=== PATIENT | male | born 1965 | race African-American/Black ===

== ENCOUNTER 2016-09-02 10:06 | Inpatient (IN) | payer OTHER ==
[2016-09-02 10:20] VITALS: BMI 26.5
--- NOTE | 2016-09-02 12:31 | HP ---
Admission [facility] Chief Complaint: "I am Really trying to get my life back on track." Pt. is here for Rehab for Alcohol, Heroin, and Cocaine. Allergies/Adverse Reactions: Allergies Allergy/AdvReac Type Severity Reaction Status Date / Time No Known Allergies Allergy Verified 09/02/16 10:48 History of Present Illness: Pt. is a 51 YO male here for Rehab for Alcohol, Heroin, and Cocaine. Pt. completed Detox at [facility] this past 08/29/2016. Patient had previous Rehab at [place], [place]), completed in 2015. This was followed by Long Terms Rehab at [facility], completed in 03/2016. Longest period of previous sobriety: 2007 - 2013. Exam Limitations: No Limitations - Ebola screening Have you traveled outside of the country in the last 21 days: No Have you had contact with anyone from an Ebola affected area: No Have you been sick,other than usual withdrawal symptoms: No Do you have a fever: No - Review of Systems Constitutional: Loss of Appetite (Intermittent.), Malaise, Unintentional Wgt. Loss (Lost approx. 20 lbs. over last 6 months.) EENT: reports: Other (Partial Dentures for Upper and Lower Teeth.) Respiratory: reports: No Symptoms reported Cardiac: reports: No Symptoms Reported GI: reports: Poor Appetite (Intermittent when using Drugs / Alcohol.), Indigestion : reports: No Symptoms Reported Musculoskeletal: reports: No Symptoms Reported Integumentary: reports: No Symptoms Reported Neuro: reports: No Symptoms reported Endocrine: reports: No Symptoms Reported Hematology: reports: Anemia (Many years ago.) Psychiatric: reports: Judgement Intact, Mood/Affect Appropiate, Orientated x3, Depressed (Only when using Drugs / Alcohol.) Other Systems: Reviewed and Negative Patient History - Patient Medical History Hx Anemia: Yes (Many years ago, Not recent.) Hx Asthma: No Hx Chronic Obstructive Pulmonary Disease (COPD): No Hx Cancer: No Hx Cardiac Disorders: No Hx Congestive Heart Failure: No Hx Hypertension: No Hx Hypercholesterolemia: No Hx Pacemaker: No HX Cerebrovascular Accident: No Hx Seizures: No Hx Dementia: No Hx Diabetes: No Hx Gastrointestinal Disorders: No Hx Liver Disease: No Hx Genitourinary Disorders: No Hx Sexually Transmitted Disorders: No Hx Renal Disease (ESRD): No Hx Thyroid Disease: No Hx Human Immunodeficiency Virus (HIV): No (Last Tested approx. 8 months ago: NEGATIVE. ) Hx Hepatitis C: No (Never Tested.) Hx Depression: Yes (Only when using Drugs / Alcohol.) Hx Suicide Attempt: No (PATIENT DENIES CURRENT SI / HI.) Hx Bipolar Disorder: No Hx Schizophrenia: No Other Medical History: DENIES. - Patient Surgical History Past Surgical History: Yes Hx Neurologic Surgery: No Hx Cataract Extraction: No Hx Cardiac Surgery: No Hx Lung Surgery: No Hx Breast Surgery: No Hx Breast Biopsy: No Hx Abdominal Surgery: No Hx Appendectomy: No Hx Cholecystectomy: No Hx Genitourinary Surgery: Yes (Kidney Stone Removed: 1998.) Hx Orthopedic Surgery: No Other Surgical History: Metal Plate Placed in Jaw after Fracture: 1982. Anesthesia Reaction: No - PPD History Previous Implant?: Yes Documented Results: Positive w/o proof (Completed Full Course of Treatment: 1996.) Implanted On Prior [facility] Admission?: No PPD to be Administered?: No - Reproductive History Patient is a Female of Child Bearing Age (11 -55 yrs old): No (PATIENT IS MALE.) - Smoking Cessation Smoking history: Current every day smoker Have you smoked in the past 12 months: Yes Aproximately how many cigarettes per day: 10 Cigars Per Day: 0 Hx Chewing Tobacco Use: No Initiated information on smoking cessation: Yes 'Breaking Loose' booklet given: 09/02/16 (GIVEN ON UNIT.) - Substance & Tx. History Hx Alcohol Use: Yes Hx Substance Use: Yes Substance Use Type: Alcohol, Cocaine, Heroin Hx Substance Use Treatment: Yes (Previous Detox ([facility]; Previous Rehab: [facility] - Substances Abused Alcohol Route: Oral Frequency: Daily Amount used: 2 X 6-Pack 16 oz. Beers, 1/2 Pint Liquor. Age of first use: 10 Date of Last Use: 08/31/16 Heroin Route: Inhalation Frequency: Daily Amount used: 3 Bags. Age of first use: 30 Date of Last Use: 08/30/16 Crack Route: Smoking Frequency: Daily Amount used: $ 75 - $ 100. Age of first use: 19 Date of Last Use: 08/31/16 Family Disease History - Family Disease History Family Disease History: Heart Disease: Grandparent ([place] Father (, 3 CVA's.), [place]: Grandparent Admission Physical Exam S - Vital Signs Vital Signs: Vital Signs - 24 hr 09/02/16 10:16 Temperature 97 F L Pulse Rate 72 Respiratory 20 Rate Blood Pressure 121/78 - Physical General Appearance: Yes: No Apparent Distress, Nourished, Appropriately Dressed HEENTM: Yes: Hearing grossly Normal, Normocephalic, Normal Voice, JAMEL, Pharynx Normal Respiratory: Yes: Chest Non-Tender, Lungs Clear, No Respiratory Distress Neck: Yes: No masses,lesions,Nodules, Supple, Trachea in good position Breast: Yes: Breast Exam Deferred Cardiology: Yes: Regular Rhythm, Regular Rate, S1, S2 Abdominal: Yes: Normal Bowel Sounds, Non Tender, Flat, Soft Genitourinary: Yes: Within Normal Limits Back: Yes: Within Normal Limits Musculoskeletal: Yes: full range of Motion, Gait Steady Extremities: Yes: Normal Inspection, Normal Range of Motion, Non-Tender Neurological: Yes: Fully Oriented, Alert, Normal Mood/Affect, Normal Response Integumentary: Yes: Normal Color, Dry, Warm Lymphatic: Yes: Within Normal Limits - Diagnostic (1) Alcohol dependence Current Visit: Yes Status: Chronic Qualifiers: Substance use status: uncomplicated Qualified Code(s): F10.20 - Alcohol dependence, uncomplicated (2) Heroin dependence Current Visit: Yes Status: Chronic (3) Cocaine dependence Current Visit: Yes Status: Chronic Qualifiers: Substance use status: uncomplicated Qualified Code(s): F14.20 - Cocaine dependence, uncomplicated (4) Nicotine dependence Current Visit: Yes Status: Chronic Qualifiers: Nicotine product type: cigarettes Substance use status: uncomplicated Qualified Code(s): F17.210 - Nicotine dependence, cigarettes, uncomplicated Cleared for Admission S - Detox or Rehab Claeared for Rehab Admission: Yes [facility] Breath Alcohol Content Breath Alcohol Content: 0 Urine Drug Screen - Results Drug Screen Negative: No Urine Drug Screen Results: BRYN-Cocaine, OPI-Opiates, MTD-Methadone
[2016-09-02] MEDS ORDERED: P-EPHED 60MG/TRIPROLIDI 2.5MG TABLET PO PRN (12:57)
[2016-09-02] MEDS ORDERED: diphenhydrAMINE HCL 50 MG CAPSULE PO PRN (12:57)
[2016-09-02] MEDS ORDERED: MENTHOL/PHENOL 1 EACH UD MM PRN (12:57)
[2016-09-02] MEDS ORDERED: hydrOXYzine PAMOATE 50 MG CAPSULE (FP) PO PRN (12:57)
[2016-09-02] MEDS ORDERED: guaiFENesin/D-METHORPHAN HB 10 ML UNIT-DOSE CUPS PO PRN (12:57)
[2016-09-02] MEDS ORDERED: MAGNESIUM CITRATE 300 ML BOTTLE PO PRN (12:57)
[2016-09-02] MEDS ORDERED: ACETAMINOPHEN 325 MG TABLET (FP) PO PRN (12:57)
[2016-09-02] MEDS ORDERED: MAG HYDROX/AL HYDROX/SIMETH 30 ML UNIT-DOSE CUP PO PRN (12:57)
[2016-09-02] MEDS ORDERED: NICOTINE POLACRILEX 2 MG GUM BC PRN (12:57)
[2016-09-02] MEDS ORDERED: LOPERAMIDE HCL 2 MG CAPSULE PO PRN (12:57)
[2016-09-02] MEDS ORDERED: MAGNESIUM HYDROX 2400MG/30ML ORAL SUSPENSION 30 ML CUP PO PRN (12:57)
[2016-09-02 14:15] LABS: MCH 28.4 pg (25.7-33.7); MCHC 34.3 g/dl (32.0-35.9); PLATELET COUNT 267 K/MM3 (134-434); RDW 13.4 % (11.9-15.9); WHITE BLOOD COUNT 7.8 K/mm3 (4.0-10.0)
[2016-09-02 14:24] LABS: ALBUMIN 3.9 g/dl (3.4-5.0); ANION GAP 9 (8-16); CALCIUM 10.1 mg/dL (8.5-10.1); CO2 27 mmol/L (21-32); GLUCOSE,RANDOM 98 mg/dL (74-106)
[2016-09-02 14:27] LABS: ALK PHOS 129 U/L (45-117); BILIRUBIN,TOTAL 0.9 mg/dL (0.2-1.0); CREATININE 1.2 mg/dL (0.7-1.3); SGOT/AST 19 U/L (15-37); SGPT/ALT 27 U/L (12-78); TOT PROT 7.2 g/dl (6.4-8.2)
[2016-09-02] MEDS: NICOTINE 21 MG/24 HOURS TOPICAL PATCH TD SCH (14:48)
[2016-09-02] MEDS: IBUPROFEN 400 MG TABLET (FP) PO PRN (18:22)
[2016-09-02] MEDS: THIAMINE HCL 100 MG TABLET (FP) PO SCH (21:22)
[2016-09-02 22:36] LABS: URINE APPEARANCE CLEAR; URINE BILIRUBIN NEGATIVE (NEGATIVE); URINE BLOOD NEGATIVE (NEGATIVE); URINE COLOR YELLOW; URINE GLUCOSE (UA) NEGATIVE (NEGATIVE); URINE KETONE NEGATIVE (NEGATIVE); URINE LEUK ESTERASE NEGATIVE (NEGATIVE); URINE NITRITE NEGATIVE (NEGATIVE); URINE PROTEIN NEGATIVE (NEGATIVE)
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
--- NOTE | 2016-09-03 09:31 | EKG ---
Test Reason : Blood Pressure : / mmHG Vent. Rate : 059 BPM Atrial Rate : 059 BPM P-R Int : 156 ms QRS Dur : 096 ms QT Int : 386 ms P-R-T Axes : 076 057 047 degrees QTc Int : 382 ms SINUS BRADYCARDIA NONSPECIFIC ST ABNORMALITY NO PREVIOUS ECGS AVAILABLE Confirmed by TRUNG WEAVER MD ([id number]) on 09/03/2016 9:31:01 AM Referred By: Confirmed By:TRUNG WEAVER MD
[2016-09-03] MEDS: NICOTINE 21 MG/24 HOURS TOPICAL PATCH TD SCH (09:56)
[2016-09-03] MEDS: PRENATAL VITAMINS W/ FOLIC ACID TABLET (FP) PO SCH (09:56)
[2016-09-03] MEDS ORDERED: PNEUMOCOCCAL 23 VACCINE 0.5 ML VIAL IM ONE (12:00)
[2016-09-03] MEDS ORDERED: PNEUMOC 13-VAL CONJ-DIP CRM/PF 0.5 ML DISP.SYRIN IM ONE (12:00)
[2016-09-03 14:26] LABS: HIV 1 & 2 AB NEGATIVE; HIV 1 AGp24 NEGATIVE
[2016-09-03] MEDS: THIAMINE HCL 100 MG TABLET (FP) PO SCH (21:16)
[2016-09-03] MEDS ORDERED: traZODone HCL 50 MG TABLET (FP) PO ONE (22:18)
[2016-09-03] MEDS: traZODone HCL 100 MG TABLET (FP) PO SCH (22:27)
[2016-09-04] MEDS: PRENATAL VITAMINS W/ FOLIC ACID TABLET (FP) PO SCH (09:42)
[2016-09-04] MEDS: NICOTINE 21 MG/24 HOURS TOPICAL PATCH TD SCH (09:42)
[2016-09-04] MEDS: traZODone HCL 100 MG TABLET (FP) PO SCH (21:10)
[2016-09-04] MEDS: THIAMINE HCL 100 MG TABLET (FP) PO SCH (21:10)
[2016-09-04] MEDS ORDERED: traZODone HCL 50 MG TABLET (FP) PO SCH (22:00)
[2016-09-05] MEDS: NICOTINE 21 MG/24 HOURS TOPICAL PATCH TD SCH (10:00)
[2016-09-05] MEDS: PRENATAL VITAMINS W/ FOLIC ACID TABLET (FP) PO SCH (10:00)
[2016-09-05] MEDS: traZODone HCL 100 MG TABLET (FP) PO SCH (21:17)
[2016-09-05] MEDS: THIAMINE HCL 100 MG TABLET (FP) PO SCH (21:17)
[2016-09-06] MEDS: NICOTINE 21 MG/24 HOURS TOPICAL PATCH TD SCH (09:42)
[2016-09-06] MEDS: PRENATAL VITAMINS W/ FOLIC ACID TABLET (FP) PO SCH (09:42)
[2016-09-06] MEDS: THIAMINE HCL 100 MG TABLET (FP) PO SCH (21:07)
[2016-09-06] MEDS: traZODone HCL 100 MG TABLET (FP) PO SCH (21:07)
[2016-09-07] MEDS: PRENATAL VITAMINS W/ FOLIC ACID TABLET (FP) PO SCH (09:43)
[2016-09-07] MEDS: NICOTINE 21 MG/24 HOURS TOPICAL PATCH TD SCH (09:43)
[2016-09-07] MEDS: IBUPROFEN 400 MG TABLET (FP) PO PRN (17:45)
[2016-09-07] MEDS: THIAMINE HCL 100 MG TABLET (FP) PO SCH (21:14)
[2016-09-07] MEDS: traZODone HCL 100 MG TABLET (FP) PO SCH (21:14)
[2016-09-08] MEDS: NICOTINE 21 MG/24 HOURS TOPICAL PATCH TD SCH (09:36)
[2016-09-08] MEDS: PRENATAL VITAMINS W/ FOLIC ACID TABLET (FP) PO SCH (09:36)
--- NOTE | 2016-09-08 13:27 | PN ---
[facility] Progress Note Note: pt c/o mass under rt axilla no fever exam Vital Signs Temperature 97.9 F 09/08/16 06:46 Pulse Rate 54 L 09/08/16 06:46 Respiratory Rate 20 09/08/16 06:46 Blood Pressure 135/79 09/08/16 06:46 O2 Sat by Pulse Oximetry (%) pt aox3 in nad rt axilla mass tender to palpation imp-rt axillary abscess/hidradenitis plan- keflex 500mg q6h warm compresses
[2016-09-08] MEDS: CEPHALEXIN MONOHYDRATE 500 MG CAPSULE (UD) PO SCH ×2 (17:09→23:45)
[2016-09-08] MEDS: TOLNAFTATE 1% CREAM 15 GM TUBE TP SCH (21:14)
[2016-09-08] MEDS: traZODone HCL 100 MG TABLET (FP) PO SCH (21:14)
[2016-09-08] MEDS: THIAMINE HCL 100 MG TABLET (FP) PO SCH (21:14)
[2016-09-09] MEDS: CEPHALEXIN MONOHYDRATE 500 MG CAPSULE (UD) PO SCH ×3 (06:11→19:00)
[2016-09-09] MEDS: NICOTINE 21 MG/24 HOURS TOPICAL PATCH TD SCH (09:55)
[2016-09-09] MEDS: PRENATAL VITAMINS W/ FOLIC ACID TABLET (FP) PO SCH (09:55)
[2016-09-09] MEDS: TOLNAFTATE 1% CREAM 15 GM TUBE TP SCH ×2 (09:55→21:06)
--- NOTE | 2016-09-09 13:55 | PN ---
S Progress Note Note: EPIDERMAL INCLUSION CYST OF RIGHT AXILLA FOR 1 YEAR,SIZE 1X0.5 CM,MOVABLE,NO ERYTHEMA,NO INFETION HAS PROBLEM FOR 1 YEAR ADVISE TO TO TO PCP FOR SURGICAL REFER FOR ELECTIVE SURGERY OR [facility]
[2016-09-09] MEDS: THIAMINE HCL 100 MG TABLET (FP) PO SCH (21:04)
[2016-09-09] MEDS: traZODone HCL 100 MG TABLET (FP) PO SCH (21:04)
[2016-09-10] MEDS: CEPHALEXIN MONOHYDRATE 500 MG CAPSULE (UD) PO SCH ×5 (06:00→23:14)
[2016-09-10] MEDS: NICOTINE 21 MG/24 HOURS TOPICAL PATCH TD SCH (09:42)
[2016-09-10] MEDS: TOLNAFTATE 1% CREAM 15 GM TUBE TP SCH ×2 (09:42→21:15)
[2016-09-10] MEDS: PRENATAL VITAMINS W/ FOLIC ACID TABLET (FP) PO SCH (09:42)
[2016-09-10] MEDS: IBUPROFEN 400 MG TABLET (FP) PO PRN (21:14)
[2016-09-10] MEDS: traZODone HCL 100 MG TABLET (FP) PO SCH (21:15)
[2016-09-10] MEDS: THIAMINE HCL 100 MG TABLET (FP) PO SCH (21:16)
[2016-09-11] MEDS: CEPHALEXIN MONOHYDRATE 500 MG CAPSULE (UD) PO SCH ×4 (06:23→23:30)
[2016-09-11] MEDS: PRENATAL VITAMINS W/ FOLIC ACID TABLET (FP) PO SCH (09:31)
[2016-09-11] MEDS: NICOTINE 21 MG/24 HOURS TOPICAL PATCH TD SCH (09:31)
[2016-09-11] MEDS: TOLNAFTATE 1% CREAM 15 GM TUBE TP SCH ×2 (09:49→21:05)
[2016-09-11] MEDS: traZODone HCL 100 MG TABLET (FP) PO SCH (21:05)
[2016-09-11] MEDS: THIAMINE HCL 100 MG TABLET (FP) PO SCH (21:05)
[2016-09-12] MEDS: CEPHALEXIN MONOHYDRATE 500 MG CAPSULE (UD) PO SCH ×3 (06:29→17:32)
[2016-09-12] MEDS: TOLNAFTATE 1% CREAM 15 GM TUBE TP SCH ×2 (09:41→21:11)
[2016-09-12] MEDS: NICOTINE 21 MG/24 HOURS TOPICAL PATCH TD SCH (09:41)
[2016-09-12] MEDS: PRENATAL VITAMINS W/ FOLIC ACID TABLET (FP) PO SCH (09:41)
[2016-09-12] MEDS: THIAMINE HCL 100 MG TABLET (FP) PO SCH (21:10)
[2016-09-12] MEDS: traZODone HCL 100 MG TABLET (FP) PO SCH (21:10)
[2016-09-13] MEDS: CEPHALEXIN MONOHYDRATE 500 MG CAPSULE (UD) PO SCH ×5 (00:55→23:10)
[2016-09-13] MEDS: PRENATAL VITAMINS W/ FOLIC ACID TABLET (FP) PO SCH (09:33)
[2016-09-13] MEDS: TOLNAFTATE 1% CREAM 15 GM TUBE TP SCH ×2 (09:33→21:14)
[2016-09-13] MEDS: NICOTINE 21 MG/24 HOURS TOPICAL PATCH TD SCH (09:33)
[2016-09-13] MEDS ORDERED: PT OWN MED DRAWER 7, Y5N ONE (10:28)
[2016-09-13] MEDS: traZODone HCL 100 MG TABLET (FP) PO SCH (21:13)
[2016-09-13] MEDS: THIAMINE HCL 100 MG TABLET (FP) PO SCH (21:13)
[2016-09-14] MEDS: CEPHALEXIN MONOHYDRATE 500 MG CAPSULE (UD) PO SCH ×4 (06:18→23:04)
[2016-09-14] MEDS: NICOTINE 21 MG/24 HOURS TOPICAL PATCH TD SCH (09:27)
[2016-09-14] MEDS: PRENATAL VITAMINS W/ FOLIC ACID TABLET (FP) PO SCH (09:27)
[2016-09-14] MEDS: TOLNAFTATE 1% CREAM 15 GM TUBE TP SCH ×2 (09:53→21:25)
--- NOTE | 2016-09-14 11:30 | PN ---
[facility] Progress Note Note: pain in the left ear for 2 days, afebrile examination otitis externa left treatment cortisporin otic solution 4 gtts left ear q6hrs for 5 days
[2016-09-14] MEDS: NEOMYCIN/POLYMYXN/HC OTIC SUSPENSION 10 ML BOTTLE AS SCH ×3 (12:24→23:05)
[2016-09-14] MEDS: THIAMINE HCL 100 MG TABLET (FP) PO SCH (21:24)
[2016-09-14] MEDS: traZODone HCL 100 MG TABLET (FP) PO SCH (21:24)
[2016-09-15] MEDS: CEPHALEXIN MONOHYDRATE 500 MG CAPSULE (UD) PO SCH ×2 (06:11→12:49)
[2016-09-15] MEDS: NEOMYCIN/POLYMYXN/HC OTIC SUSPENSION 10 ML BOTTLE AS SCH ×3 (06:12→17:04)
[2016-09-15 06:37] VITALS: TEMP 98.4
[2016-09-15] MEDS: NICOTINE 21 MG/24 HOURS TOPICAL PATCH TD SCH (09:38)
[2016-09-15] MEDS: TOLNAFTATE 1% CREAM 15 GM TUBE TP SCH ×2 (09:38→21:44)
[2016-09-15] MEDS: PRENATAL VITAMINS W/ FOLIC ACID TABLET (FP) PO SCH (09:38)
--- NOTE | 2016-09-15 13:39 | PN ---
Psychiatric Progress Note Vital Signs: Vital Signs Period Temp Pulse Resp BP Sys/Vickers Pulse Ox Last 24 Hr 98.4 F 55 18-18 135/77 Date of Session: 09/15/16 Chief Complaint:: Discharge Note HPI: Patient addressing Alcohol, Opoid and Cocaine Dependence comorbid with Nicotine Dependence, Substance-Induced Mood Disorder and Substance-Induced Sleep Disorder ROS: +PPD treated was medically managed Current Medications: Active Medications Generic Name Dose Route Start Last Admin Trade Name Freq PRN Reason Stop Dose Admin Acetaminophen 650 mg 09/02/16 12:57 Tylenol - PO Q4H PRN PAIN Al Hydroxide/Mg Hydroxide 30 ml 09/02/16 12:57 Mylanta Oral Suspension - PO Q6H PRN DYSPEPSIA Cephalexin HCl 500 mg 09/08/16 18:00 09/15/16 12:49 Keflex - PO 09/15/16 17:59 500 mg Q6HPO RAI Administration Diphenhydramine HCl 50 mg 09/02/16 12:57 09/02/16 21:22 Benadryl - PO 50 mg HSMR1 PRN Administration INSOMNIA Eucalyptus/Menthol/Phenol/Sorbitol 1 each 09/02/16 12:57 Cepastat Lozenge - MM Q4H PRN SORE THROAT Guaifenesin 10 ml 09/02/16 12:57 Robitussin Dm - PO Q6H PRN COUGH Hydroxyzine Pamoate 50 mg 09/02/16 12:57 Vistaril - PO Q4H PRN AGITATION Ibuprofen 400 mg 09/02/16 12:57 09/10/16 21:14 Motrin - PO 400 mg Q6H PRN Administration SEVERE PAIN Loperamide HCl 4 mg 09/02/16 12:57 Imodium - PO Q6H PRN DIARRHEA Magnesium Citrate 300 ml 09/02/16 12:57 Citroma - PO Q48H PRN CONSTIPATION Magnesium Hydroxide 30 ml 09/02/16 12:57 Milk Of Magnesia - PO DAILY PRN CONSTIPATION Neomycin/Polymyxin/Hydrocortisone 4 drop 09/14/16 12:00 09/15/16 12:50 Cortisporin Otic Suspenstion - 09/19/16 23:59 4 drop Q6HPO RAI Administration Nicotine 21 mg 09/02/16 13:30 09/15/16 09:38 Nicoderm Patch - TD Not Given DAILY RAI Nicotine Polacrilex 2 mg 09/02/16 12:57 Nicorette Gum - BC Q2H PRN NICOTINE REPLACEMENT RX Multivit/Folic Acid/Iron 1 tab 09/03/16 10:00 09/15/16 09:38 Vitamins (Sjr) - PO 1 tab DAILY RAI Administration Pseudoephedrine/Triprolidine 1 combo 09/02/16 12:57 Actifed - PO TID PRN NASAL CONGESTION Thiamine HCl 100 mg 09/02/16 22:00 09/14/16 21:24 Vitamin B1 - PO 100 mg HS RAI Administration Tolnaftate 1 applic 09/08/16 22:00 09/15/16 09:38 Tinactin 1% Cream - TP Not Given BID RAI Trazodone HCl 100 mg 09/03/16 22:30 09/14/16 21:24 Desyrel - PO 100 mg HS RAI Administration Current Side Effect: No Lab tests ordered: Yes Lab tests reviewed: Yes Provider note:: Patient will complete this program on 08/17/16. He has met his short term goals and will continue to address his issues in outpatient treatment at either [facility] in [facility] or at [facility] in [place]. Told television writer that from his participation in this program, he has learned to utilize the tools of relapse prevention, make meetings and establish a sober support network. He responded well to Trazadone 100 mg po HS for insomnia. Script for that medication will be electronically transmitted to [facility] at [address] [place] [address]. He is stable for discharge on 08/17/16 Total face to face time:: 35 Mental Status Exam - Mental Status Exam Alert and Oriented to: Time, Place, Person Cognitive Function: Fair Patient Appearance: Well Groomed Mood: Hopeful, Euthymic Affect: Appropriate Patient Behavior: Cooperative Speech Pattern: Clear Voice Loudness: Normal Thought Process: Intact, Goal Oriented Thought Disorder: Not Present Hallucinations: Denies Suicidal Ideation: Denies Homicidal Ideation: Denies Insight/Judgement: Fair Sleep: Fair Appetite: Good Muscle strength/Tone: Normal Gait/Station: Normal Psychiatric Treatment Plan - Problem List (1) Alcohol dependence Current Visit: Yes Qualifiers: Substance use status: uncomplicated Qualified Code(s): F10.20 - Alcohol dependence, uncomplicated (2) Opioid dependence Current Visit: Yes (3) Cocaine dependence Current Visit: Yes Qualifiers: Substance use status: uncomplicated Qualified Code(s): F14.20 - Cocaine dependence, uncomplicated (4) Nicotine dependence Current Visit: Yes Qualifiers: Nicotine product type: cigarettes Substance use status: uncomplicated Qualified Code(s): F17.210 - Nicotine dependence, cigarettes, uncomplicated (5) Substance induced mood disorder Current Visit: Yes (6) Substance or medication-induced sleep disorder Current Visit: Yes (7) PPD positive, treated Current Visit: Yes Initial treatment plan: Patient will be discharged tomorrow and referred to [facility] or [facility] for outpatient treatment
[2016-09-15] MEDS: THIAMINE HCL 100 MG TABLET (FP) PO SCH (21:43)
[2016-09-15] MEDS: traZODone HCL 100 MG TABLET (FP) PO SCH (21:43)
[2016-09-16] MEDS: NEOMYCIN/POLYMYXN/HC OTIC SUSPENSION 10 ML BOTTLE AS SCH ×2 (06:30)
[2016-09-16 08:34] VITALS: BP 135/70; PULSE 60
[2016-09-16] MEDS: PRENATAL VITAMINS W/ FOLIC ACID TABLET (FP) PO SCH (09:34)
[2016-09-16] MEDS: NICOTINE 21 MG/24 HOURS TOPICAL PATCH TD SCH (09:35)
[2016-09-16] MEDS: TOLNAFTATE 1% CREAM 15 GM TUBE TP SCH (09:56)
== END 2016-09-16 09:50 | disposition home or self-care (01) | DRG 772 ==
LOC: YASAS 10:06 → EDBD 10:06 → Y3W 11:52
PROVIDERS: ADMIT Psychiatry & Neurology Psychiatry; ATTEND Psychiatry & Neurology Psychiatry
PROC: HZ42ZZZ Group Counseling for Substance Abuse Treatment, Cognitive-Behavioral (ICD-10-PCS; principal; 2016-09-02)
DX: F11.20 Opioid dependence, uncomplicated (principal); F10.20 Alcohol dependence, uncomplicated; F14.20 Cocaine dependence, uncomplicated; F17.210 Nicotine dependence, cigarettes, uncomplicated; F19.24 Other psychoactive substance dependence with psychoactive substance-induced mood disorder; F19.282 Other psychoactive substance dependence with psychoactive substance-induced sleep disorder; R76.11 Nonspecific reaction to tuberculin skin test without active tuberculosis; L02.411 Cutaneous abscess of right axilla; L73.2 Hidradenitis suppurativa; H60.92 Unspecified otitis externa, left ear
CPT/HCPCS: 36415; 71020-TC; 80053; 81003; 85027; 86593; 86803; 87389; 90732; 93005; 93010; G0009

== ENCOUNTER 2017-07-07 10:59 | Inpatient (IN) | payer OTHER ==
[2017-07-07 11:30] VITALS: BMI 22.9
--- NOTE | 2017-07-07 14:39 | HP ---
COWS - Scale Resting Pulse: 0= ID 80 or Below Sweatin= Chills/Flushing Restless Observation: 3= Extraneous Movement Pupil Size: 2= Moderately Dilated Bone or Joint Aches: 2= Severe Diffuse Aches Runny Nose/ Eye Tearin= Runny Nose/Eyes GI Upset > 30mins: 3= Vomiting/Diarrhea Tremor Observation: 2= Slight Tremor Visible Yawning Observation: 2= >3x During Session Anxiety or Irritability: 2=Irritable/Anxious Goose Flesh Skin: 0=Smooth Skin COWS Score: 19 CIWA Score - CIWA Score Nausea/Vomitin Muscle Tremors: 3 Anxiety: 3 Agitation: 2 Paroxysmal Sweats: 1-Minimal Palms Moist Orientation: 0-Oriented Tacttile Disturbances: 1-Very Mild Itch/Numbness Auditory Disturbances: 1-Very Mild Visual Disturbances: 0-None Headache: 2-Mild CIWA-Ar Total Score: 16 Admission ROS [facility] - HPI Chief Complaint: i need help to stop using heroin,alcohol and cocaine Allergies/Adverse Reactions: Allergies Allergy/AdvReac Type Severity Reaction Status Date / Time No Known Allergies Allergy Verified 07/07/17 12:01 History of Present Illness: this 52 years old male with heroin,cocaine and alcohol dependence,withdrawal symptoms,seeking detox,last detox 02/06 [facility] weight loss nicotine dependence anxiety,depression,insomnia Exam Limitations: No Limitations - Ebola screening Have you traveled outside of the country in the last 21 days: No Have you had contact with anyone from an Ebola affected area: No Have you been sick,other than usual withdrawal symptoms: No Do you have a fever: No - Review of Systems Constitutional: Chills, Loss of Appetite, Malaise, Night Sweats, Changes in sleep, Weakness, Unexplained wgt Loss EENT: reports: Tearing, Nose Congestion Respiratory: reports: No Symptoms reported Cardiac: reports: No Symptoms Reported GI: reports: Diarrhea, Nausea, Vomiting, Abdominal cramping : reports: No Symptoms Reported Musculoskeletal: reports: Back Pain, Joint Pain, Muscle Pain, Joint Stiffness Integumentary: reports: Dryness Neuro: reports: Headache, Tremors Endocrine: reports: No Symptoms Reported Hematology: reports: No Symptoms Reported Psychiatric: reports: No Sypmtoms Reported, Judgement Intact, Mood/Affect Appropiate, Orientated x3, Anxious, Depressed (insomnia) Patient History - Patient Medical History Hx Anemia: Yes (Many years ago, Not recent.) Hx Asthma: No Hx Chronic Obstructive Pulmonary Disease (COPD): No Hx Cancer: No Hx Cardiac Disorders: No Hx Congestive Heart Failure: No Hx Hypertension: No Hx Hypercholesterolemia: No Hx Pacemaker: No HX Cerebrovascular Accident: No Hx Seizures: No Hx Dementia: No Hx Diabetes: No Hx Gastrointestinal Disorders: No Hx Liver Disease: No Hx Genitourinary Disorders: No Hx Sexually Transmitted Disorders: No Hx Renal Disease (ESRD): No Hx Thyroid Disease: No Hx Human Immunodeficiency Virus (HIV): No (Last Tested approx. 8 months ago: NEGATIVE. ) Hx Hepatitis C: No (Never Tested.) Hx Depression: Yes (anxiety) Hx Suicide Attempt: No Hx Bipolar Disorder: No Hx Schizophrenia: No Other Medical History: insomnia,no sucidal,no homicidal - Patient Surgical History Past Surgical History: Yes Hx Neurologic Surgery: No Hx Cataract Extraction: No Hx Cardiac Surgery: No Hx Lung Surgery: No Hx Breast Surgery: No Hx Breast Biopsy: No Hx Abdominal Surgery: No Hx Appendectomy: No Hx Cholecystectomy: No Hx Genitourinary Surgery: Yes (Kidney Stone Removed: 1998.cystosopy) Hx Section: No Hx Orthopedic Surgery: No Other Surgical History: Metal Plate Placed in Jaw after Fracture: 1982. laft Anesthesia Reaction: No - PPD History Previous Implant?: No Documented Results: Positive w/proof Implanted On Prior R Admission?: No PPD to be Administered?: No - Reproductive History Patient : No - Smoking Cessation Smoking history: Current every day smoker Have you smoked in the past 12 months: Yes Aproximately how many cigarettes per day: 10 Cigars Per Day: 0 Hx Chewing Tobacco Use: No Initiated information on smoking cessation: Yes 'Breaking Loose' booklet given: 07/07/17 - Substance & Tx. History Hx Alcohol Use: Yes Hx Substance Use: Yes Substance Use Type: Alcohol, Cocaine, Heroin Hx Substance Use Treatment: Yes (02/06 [facility]) - Substances Abused Heroin Route: Inhalation Frequency: Daily Amount used: 10bags Age of first use: 31 Date of Last Use: 07/07/17 Alcohol Route: Oral Frequency: Daily Amount used: 2-6pk-16oz beer, 1/2 pint Vodka Age of first use: 10 Date of Last Use: 07/07/17 Cocaine Route: Smoking Frequency: Daily Amount used: $70 Age of first use: 20 Date of Last Use: 07/06/17 Family Disease History - Family Disease History Family Disease History: Heart Disease: Grandparent ([place].), Father (, 3 CVA's.), [place]: Grandparent Admission Physical Exam [facility] - Vital Signs Vital Signs: Vital Signs - 24 hr 07/07/17 11:25 Temperature 97.1 F L Pulse Rate 59 L Respiratory 20 Rate Blood Pressure 123/63 - Physical General Appearance: Yes: Moderate Distress, Tremorous, Sweating, Anxious HEENTM: Yes: Normal ENT Inspection, JAMEL, Pharynx Normal Respiratory: Yes: Lungs Clear, Normal Breath Sounds, No Respiratory Distress Neck: Yes: Within Normal Limits, Supple, Trachea in good position Breast: Yes: Within Normal Limits Cardiology: Yes: Within Normal Limits, Regular Rhythm, Regular Rate, S1, S2 Abdominal: Yes: Within Normal Limits, Normal Bowel Sounds, Non Tender, Flat, Soft Genitourinary: Yes: Within Normal Limits Back: Yes: Muscle Spasm Musculoskeletal: Yes: Back pain, Joint Stiffness, Muscle Pain, Other (pain in the right knee) Extremities: Yes: Within Normal Limits, Normal Range of Motion, Tremors, Other ( pain in the right knee chronic) Neurological: Yes: operations officer afloat II-XII NML intact, Fully Oriented, Alert, Motor Strength 5/5 Integumentary: Yes: Dry Lymphatic: Yes: Within Normal Limits - Diagnostic (1) Opioid dependence with withdrawal Current Visit: Yes Status: Acute (2) Alcohol dependence with uncomplicated withdrawal Current Visit: Yes Status: Acute (3) PPD positive, treated Current Visit: No Status: Acute (4) Cocaine dependence Current Visit: No Status: Chronic Qualifiers: Substance use status: uncomplicated Qualified Code(s): F14.20 - Cocaine dependence, uncomplicated (5) Nicotine dependence Current Visit: No Status: Chronic Qualifiers: Nicotine product type: cigarettes Substance use status: uncomplicated Qualified Code(s): F17.210 - Nicotine dependence, cigarettes, uncomplicated (6) Weight loss Current Visit: Yes Status: Acute (7) Insomnia secondary to depression with anxiety Current Visit: Yes Status: Acute Cleared for Admission [facility] - Detox or Rehab [facility] Level of Care: Medically Managed Detox Regimen/Protocol: Methadone/Librium S Breath Alcohol Content Breath Alcohol Content: 0 Urine Drug Screen - Results Drug Screen Negative: Yes Urine Drug Screen Results: BRYN-Cocaine, OPI-Opiates
[2017-07-07] MEDS ORDERED: LOPERAMIDE HCL 2 MG CAPSULE PO PRN (15:02)
[2017-07-07] MEDS ORDERED: MAGNESIUM CITRATE 300 ML BOTTLE PO PRN (15:02)
[2017-07-07] MEDS ORDERED: guaiFENesin/D-METHORPHAN HB 10 ML UNIT-DOSE CUPS PO PRN (15:02)
[2017-07-07] MEDS ORDERED: MAG HYDROX/AL HYDROX/SIMETH 30 ML UNIT-DOSE CUP PO PRN (15:02)
[2017-07-07] MEDS ORDERED: hydrOXYzine PAMOATE 50 MG CAPSULE (FP) PO PRN (15:02)
[2017-07-07] MEDS ORDERED: MAGNESIUM HYDROX 2400MG/30ML ORAL SUSPENSION 30 ML CUP PO PRN (15:02)
[2017-07-07] MEDS ORDERED: MENTHOL/PHENOL 1 EACH UD MM PRN (15:02)
[2017-07-07] MEDS ORDERED: P-EPHED 60MG/TRIPROLIDI 2.5MG TABLET PO PRN (15:02)
[2017-07-07] MEDS ORDERED: ACETAMINOPHEN 325 MG TABLET (FP) PO PRN (15:02)
[2017-07-07] MEDS ORDERED: chlordiazePOXIDE HCL 25 MG CAPSULE PO PRN (15:02)
[2017-07-07] MEDS ORDERED: METHADONE HCL 10 MG TABLET (FOR DETOX USE ONLY) PO ONE ×2 (15:30→23:00)
[2017-07-07] MEDS ORDERED: chlordiazePOXIDE HCL 25 MG CAPSULE PO ONE (15:30)
[2017-07-07] MEDS: chlordiazePOXIDE HCL 25 MG CAPSULE PO SCH ×2 (17:27→22:14)
[2017-07-07] MEDS: IBUPROFEN 400 MG TABLET (FP) PO PRN (18:23)
[2017-07-07] MEDS ORDERED: MELATONIN 5 MG TABLETS PO PRN (22:00)
[2017-07-07] MEDS: THIAMINE HCL 100 MG TABLET (FP) PO SCH (22:14)
[2017-07-08 03:37] LABS: URINE APPEARANCE CLEAR; URINE BILIRUBIN NEGATIVE (<2.0 mg/dL); URINE COLOR YELLOW; URINE GLUCOSE (UA) NEGATIVE (NEGATIVE); URINE KETONE NEGATIVE (NEGATIVE); URINE LEUK ESTERASE NEGATIVE (NEGATIVE); URINE NITRITE NEGATIVE (NEGATIVE); URINE PROTEIN NEGATIVE (NEGATIVE); URINE UROBILINOGEN NEGATIVE mg/dL (0.2-1.0)
[2017-07-08] MEDS: chlordiazePOXIDE HCL 25 MG CAPSULE PO SCH ×4 (05:29→22:23)
[2017-07-08 09:31] LABS: HEMOGLOBIN 13.7 GM/dL (11.7-16.9); MCH 29.4 pg (25.7-33.7); MCHC 34.3 g/dl (32.0-35.9); MEAN CELL VOLUME 85.7 fl (80-96); MEAN PLT VOLUME 8.9 fl (7.5-11.1); PLATELET COUNT 261 K/MM3 (134-434); RBC 4.67 M/mm3 (4.00-5.60); RDW 13.3 % (11.9-15.9); WHITE BLOOD COUNT 8.9 K/mm3 (4.0-10.0)
[2017-07-08 09:45] LABS: ALBUMIN 3.2 g/dl (3.4-5.0); ANION GAP 6 (8-16); BLOOD UREA NITROGEN 14 mg/dL (7-18); CALCIUM 8.9 mg/dL (8.5-10.1); CHLORIDE 107 mmol/L (98-107); CO2 28 mmol/L (21-32); GLUCOSE,RANDOM 71 mg/dL (74-106); POTASSIUM 4.3 mmol/L (3.5-5.1); SGOT/AST 16 U/L (15-37); SGPT/ALT 18 U/L (12-78); SODIUM 141 mmol/L (136-145)
[2017-07-08 09:48] LABS: ALK PHOS 151 U/L (45-117); BILIRUBIN,TOTAL 0.6 mg/dL (0.2-1.0)
[2017-07-08] MEDS ORDERED: METHADONE HCL 10 MG TABLET (FOR DETOX USE ONLY) PO SCH (10:00)
[2017-07-08] MEDS: IBUPROFEN 400 MG TABLET (FP) PO PRN ×2 (10:35→22:23)
[2017-07-08] MEDS: PRENATAL VITAMINS W/ FOLIC ACID TABLET (FP) PO SCH (10:35)
[2017-07-08] MEDS ORDERED: COLLOIDAL OATMEAL 1 BAR EACH TP PRN (10:48)
--- NOTE | 2017-07-08 11:12 | PN ---
S CIWA - CIWA Score Nausea/Vomitin-No Nausea/No Vomiting Muscle Tremors: 4-Moderate,w/Arms Extend Anxiety: 4-Mod. Anxious/Guarded Agitation: 4-Moderately Restless Paroxysmal Sweats: 1-Minimal Palms Moist Orientation: 0-Oriented Tacttile Disturbances: 0-None Auditory Disturbances: 0-None Visual Disturbances: 0-None Headache: 0-None Present CIWA-Ar Total Score: 13 S COWS - Scale Resting Pulse: 0= [place] 80 or Below Sweatin= Chills/Flushing Restless Observation: 3= Extraneous Movement Pupil Size: 0= Normal to Room Light Bone or Joint Aches: 4=Acute Joint/Muscle Pain Runny Nose/ Eye Tearin= None GI Upset > 30mins: 0= None Tremor Observation of Outstretched Hands: 1= Tremor [place], Not Seen Yawning Observation: 1= 1-2x During Session Anxiety or Irritability: 2=Irritable/Anxious Goose Flesh Skin: 0=Smooth Skin COWS Score: 12 [facility] Progress Note (SOAP) Subjective: ANXIETY,MUSCLE ACHES,RIGHT KNEE PAIN,INTERMITTENT SLEEP. REQUESTING DIETARY CONSULT FOR INCREASED CALORIES/FOOD SELECTION. Objective: 07/08/17 11:11 Vital Signs 07/08/17 07/08/17 06:18 09:48 Temperature 96.1 F L 96.1 F L Pulse Rate 64 69 Respiratory 18 18 Rate Blood Pressure 113/71 120/71 Laboratory Tests 07/07/17 07/08/17 07/08/17 15:10 07:00 07:00 WBC 8.9 RBC 4.67 Hgb 13.7 Hct 40.0 MCV 85.7 MCH 29.4 MCHC 34.3 RDW 13.3 Plt Count 261 MPV 8.9 Sodium 141 Potassium 4.3 Chloride 107 Carbon Dioxide 28 Anion Gap 6 L BUN 14 Creatinine 1.0 Creat Clearance w eGFR > 60 Random Glucose 71 L D Calcium 8.9 Total Bilirubin 0.6 D AST 16 ALT 18 D Alkaline Phosphatase 151 H Total Protein 6.0 L Albumin 3.2 L Urine Color Yellow Urine Appearance Clear Urine pH 5.0 Ur Specific [place] 1.021 Urine Protein Negative Urine Glucose (UA) Negative Urine Ketones Negative Urine Blood Negative Urine Nitrite Negative Urine Bilirubin Negative Urine Urobilinogen Negative Ur Leukocyte Esterase Negative Assessment: 07/08/17 11:11 WITHDRAWAL SX Plan: CONTINUE DETOX DIETARY CONSULT TODAY
--- NOTE | 2017-07-08 11:24 | EKG ---
Test Reason : Blood Pressure : / mmHG Vent. Rate : 060 BPM Atrial Rate : 060 BPM P-R Int : 158 ms QRS Dur : 098 ms QT Int : 376 ms P-R-T Axes : 074 059 044 degrees QTc Int : 376 ms NORMAL SINUS RHYTHM NON-SPECIFIC INTRA-VENTRICULAR CONDUCTION DELAY WHEN COMPARED WITH ECG OF 02-SEP-2016 14:25, NO SIGNIFICANT CHANGE WAS FOUND Confirmed by TRUNG WEAVER MD ([id number]) on 07/08/2017 11:24:36 AM Referred By: Confirmed By:TRUNG WEAVER MD
[2017-07-08] MEDS: MINERAL OIL/PETROLAT/WATER TOPICAL CREAM 113 GM JAR TP SCH (11:48)
--- NOTE | 2017-07-08 13:35 | CONSULT ---
[facility] Psychiatric Consult - Data Date of interview: 07/08/17 Admission source: [facility] Identifying data: Readmission to [facility] for this 52 y/o AA male seeking detox treatment on for alcohol,opioid and cocaine (crack) dependence.Patient is single,a father of four,domiciled,unemployed and supported on Public Assistance. Substance Abuse History: Confirmed by patient in this interview.Smoking history : Current every day smoker. Have you smoked in the past 12 months: Yes. Aproximately how many cigarettes per day: 10. Cigars Per Day: 0. Hx Chewing Tobacco Use: No. Initiated information on smoking cessation: Yes. 'Breaking Loose' booklet given: 07/07/17. - Substance & Tx. History. Hx Alcohol Use: Yes. Hx Substance Use: Yes. Substance Use Type: Alcohol, Cocaine, Heroin. Hx Substance Use Treatment: Yes (02/06 [facility]). - Substances Abused. Heroin. Route: Inhalation. Frequency: Daily. Amount used: 10bags. Age of first use: 31. Date of Last Use: 07/07/17. Alcohol. Route: Oral. Frequency: Daily. Amount used: 2-6pk-16oz beer, 1/2 pint Vodka. Age of first use: 10. Date of Last Use: 07/07/17. Cocaine. Route: Smoking. Frequency: Daily. Amount used: $70. Age of first use: 20. Date of Last Use: 07/06/17 Medical History: Anemia,positive PPD,arthritis of right knee (self-report), history of nephrolithiasis (cystoscopy in 1998) and facial surgery for fracture of mandible (hardware in place) in 1982. Psychiatric History: Patient denies. Physical/Sexual Abuse/Trauma History: Patient denies. Additional Comment: Urine Drug Screen Results: BRYN-Cocaine, OPI-Opiates.Noted. Mental Status Exam - Mental Status Exam Alert and Oriented to: Time, Place, Person Cognitive Function: Good Patient Appearance: Well Groomed Mood: Hopeful, Euthymic Affect: Appropriate, Normal Range Patient Behavior: Fatigued, Cooperative Speech Pattern: Clear, Appropriate Voice Loudness: Normal Thought Process: Intact, Goal Oriented Thought Disorder: Not Present Hallucinations: Denies Suicidal Ideation: Denies Homicidal Ideation: Denies Insight/Judgement: Poor Sleep: Poorly, Difficulty falling asleep Appetite: Good Muscle strength/Tone: Normal Gait/Station: Normal Psychiatric Findings - Problem List ([place] 1, 2,3) (1) Opioid dependence with withdrawal Current Visit: Yes Status: Acute (2) Alcohol dependence with uncomplicated withdrawal Current Visit: Yes Status: Acute (3) Cocaine dependence Current Visit: Yes Status: Acute Qualifiers: Substance use status: uncomplicated Qualified Code(s): F14.20 - Cocaine dependence, uncomplicated (4) Nicotine dependence Current Visit: Yes Status: Acute Qualifiers: Nicotine product type: cigarettes Substance use status: in withdrawal Qualified Code(s): F17.213 - Nicotine dependence, cigarettes, with withdrawal (5) Insomnia Current Visit: Yes Status: Acute - Initial Treatment Plan Initial Treatment Plan: Psychoeducation.Sleep hygiene.Detoxification.Ambien 10 mg po hs prn.parasomnias (sleep walking) discussed with the patient.Mr Muhammad agrees with this careplan.Observation.
[2017-07-08] MEDS: THIAMINE HCL 100 MG TABLET (FP) PO SCH (22:23)
[2017-07-08] MEDS: ZOLPIDEM TARTRATE 10 MG TABLET (PARK CARE ONLY) PO PRN (22:24)
[2017-07-09] MEDS: chlordiazePOXIDE HCL 25 MG CAPSULE PO SCH ×2 (05:33→10:36)
[2017-07-09] MEDS: MINERAL OIL/PETROLAT/WATER TOPICAL CREAM 113 GM JAR TP SCH (10:36)
[2017-07-09] MEDS: METHADONE HCL 5 MG TABLET (FOR DETOX USE ONLY) PO SCH (10:36)
[2017-07-09] MEDS: PRENATAL VITAMINS W/ FOLIC ACID TABLET (FP) PO SCH (10:36)
[2017-07-09] MEDS: METHYL SALICYLATE/MENTHOL OINT 30 GM TUBE TP SCH ×2 (14:03→22:28)
--- NOTE | 2017-07-09 17:59 | PN ---
[facility] CIWA - CIWA Score Nausea/Vomitin-No Nausea/No Vomiting Muscle Tremors: None Anxiety: 3 Agitation: 4-Moderately Restless Paroxysmal Sweats: 2 Orientation: 2-Disoriented Date<2 days Tacttile Disturbances: 2-Mild Itch/Numbness/Burn Auditory Disturbances: 0-None Visual Disturbances: 2-Mild Sensitivity Headache: 0-None Present CIWA-Ar Total Score: 15 S COWS - Scale Resting Pulse: 0= [place] 80 or Below Sweatin= Chills/Flushing Restless Observation: 1= Difficult to Sit Still Pupil Size: 0= Normal to Room Light Bone or Joint Aches: 2= Severe Diffuse Aches Runny Nose/ Eye Tearin= None GI Upset > 30mins: 2= Nausea/Diarrhea Tremor Observation of Outstretched Hands: 0= None Yawning Observation: 1= 1-2x During Session Anxiety or Irritability: 2=Irritable/Anxious Goose Flesh Skin: 3=Piloerection COWS Score: 12 S Progress Note (SOAP) Subjective: Diarrhea, Body Aches, Stomach Cramping, Anxious. Objective: PATIENT A & O X 2 (UNCERTAIN ABOUT CURRENT DAY / DATE). PATIENT OBSERVED AMBULATING ON UNIT. NO ACUTE DISTRESS. 07/09/17 17:58 Vital Signs Temperature 96.9 F L 07/09/17 14:29 Pulse Rate 66 07/09/17 14:29 Respiratory Rate 18 07/09/17 14:29 Blood Pressure 108/57 07/09/17 14:29 O2 Sat by Pulse Oximetry (%) Laboratory Tests 07/07/17 07/07/17 07/08/17 07:00 15:10 07:00 WBC 8.9 RBC 4.67 Hgb 13.7 Hct 40.0 MCV 85.7 MCH 29.4 MCHC 34.3 RDW 13.3 Plt Count 261 MPV 8.9 Sodium Potassium Chloride Carbon Dioxide Anion Gap BUN Creatinine Creat Clearance w eGFR Random Glucose Calcium Total Bilirubin AST ALT Alkaline Phosphatase Total Protein Albumin Urine Color Yellow Urine Appearance Clear Urine pH 5.0 Ur Specific [place] 1.021 Urine Protein Negative Urine Glucose (UA) Negative Urine Ketones Negative Urine Blood Negative Urine Nitrite Negative Urine Bilirubin Negative Urine Urobilinogen Negative Ur Leukocyte Esterase Negative RPR Titer HIV 1&2 Antibody Screen Negative HIV P24 Antigen Negative 07/08/17 07/08/17 07:00 07:00 WBC RBC Hgb Hct MCV MCH MCHC RDW Plt Count MPV Sodium 141 Potassium 4.3 Chloride 107 Carbon Dioxide 28 Anion Gap 6 L BUN 14 Creatinine 1.0 Creat Clearance w eGFR > 60 Random Glucose 71 L D Calcium 8.9 Total Bilirubin 0.6 D AST 16 ALT 18 D Alkaline Phosphatase 151 H Total Protein 6.0 L Albumin 3.2 L Urine Color Urine Appearance Urine pH Ur Specific [place] Urine Protein Urine Glucose (UA) Urine Ketones Urine Blood Urine Nitrite Urine Bilirubin Urine Urobilinogen Ur Leukocyte Esterase RPR Titer Nonreactive HIV 1&2 Antibody Screen HIV P24 Antigen LABS NOTED. Assessment: 07/09/17 17:58 WITHDRAWAL SYMPTOMS. Plan: CONTINUE DETOX. INCREASE DAILY PO FLUID INTAKE. PRN IMMODIUM FOR DIARRHEA.
[2017-07-09] MEDS: chlordiazePOXIDE 5 MG CAPSULE PO SCH ×2 (18:08→22:28)
[2017-07-09] MEDS: THIAMINE HCL 100 MG TABLET (FP) PO SCH (22:28)
[2017-07-09] MEDS: ZOLPIDEM TARTRATE 10 MG TABLET (PARK CARE ONLY) PO PRN (22:29)
[2017-07-09] MEDS: IBUPROFEN 400 MG TABLET (FP) PO PRN (22:32)
[2017-07-10] MEDS: chlordiazePOXIDE 5 MG CAPSULE PO SCH ×2 (05:51→10:04)
[2017-07-10] MEDS: PRENATAL VITAMINS W/ FOLIC ACID TABLET (FP) PO SCH (10:03)
[2017-07-10] MEDS: METHYL SALICYLATE/MENTHOL OINT 30 GM TUBE TP SCH ×2 (10:04→22:55)
[2017-07-10] MEDS: METHADONE HCL 5 MG TABLET (FOR DETOX USE ONLY) PO SCH (10:04)
[2017-07-10] MEDS: MINERAL OIL/PETROLAT/WATER TOPICAL CREAM 113 GM JAR TP SCH (10:04)
--- NOTE | 2017-07-10 14:14 | PN ---
[facility] Progress Note (SOAP) Subjective: Chills, interrupted sleep, anxious, sweating; requesting cane for easier mobility Objective: 07/10/17 14:13 Last Vital Signs Temp Pulse Resp BP Pulse Ox 96.7 F L 68 18 113/73 07/10/17 13:45 07/10/17 13:45 07/10/17 13:45 07/10/17 13:45 Laboratory Tests 07/07/17 07/07/17 07/08/17 07:00 15:10 07:00 WBC 8.9 RBC 4.67 Hgb 13.7 Hct 40.0 MCV 85.7 MCH 29.4 MCHC 34.3 RDW 13.3 Plt Count 261 MPV 8.9 Sodium Potassium Chloride Carbon Dioxide Anion Gap BUN Creatinine Creat Clearance w eGFR Random Glucose Calcium Total Bilirubin AST ALT Alkaline Phosphatase Total Protein Albumin Urine Color Yellow Urine Appearance Clear Urine pH 5.0 Ur Specific [place] 1.021 Urine Protein Negative Urine Glucose (UA) Negative Urine Ketones Negative Urine Blood Negative Urine Nitrite Negative Urine Bilirubin Negative Urine Urobilinogen Negative Ur Leukocyte Esterase Negative RPR Titer HIV 1&2 Antibody Screen Negative HIV P24 Antigen Negative 07/08/17 07/08/17 07:00 07:00 WBC RBC Hgb Hct MCV MCH MCHC RDW Plt Count MPV Sodium 141 Potassium 4.3 Chloride 107 Carbon Dioxide 28 Anion Gap 6 L BUN 14 Creatinine 1.0 Creat Clearance w eGFR > 60 Random Glucose 71 L D Calcium 8.9 Total Bilirubin 0.6 D AST 16 ALT 18 D Alkaline Phosphatase 151 H Total Protein 6.0 L Albumin 3.2 L Urine Color Urine Appearance Urine pH Ur Specific [place] Urine Protein Urine Glucose (UA) Urine Ketones Urine Blood Urine Nitrite Urine Bilirubin Urine Urobilinogen Ur Leukocyte Esterase RPR Titer Nonreactive HIV 1&2 Antibody Screen HIV P24 Antigen Labs reviewed Assessment: 07/10/17 14:13 Withdrawal symptoms Plan: Continue detox Encouraged PO hydration (water)
[2017-07-10] MEDS: chlordiazePOXIDE HCL 10 MG CAPSULE PO SCH ×2 (17:28→22:42)
[2017-07-10] MEDS: THIAMINE HCL 100 MG TABLET (FP) PO SCH (22:43)
[2017-07-11] MEDS: chlordiazePOXIDE HCL 10 MG CAPSULE PO SCH ×2 (04:53→10:09)
[2017-07-11] MEDS ORDERED: METHADONE HCL 10 MG TABLET (FOR DETOX USE ONLY) PO SCH (10:00)
[2017-07-11] MEDS: METHYL SALICYLATE/MENTHOL OINT 30 GM TUBE TP SCH ×2 (10:09→21:50)
[2017-07-11] MEDS: MINERAL OIL/PETROLAT/WATER TOPICAL CREAM 113 GM JAR TP SCH (10:09)
[2017-07-11] MEDS: PRENATAL VITAMINS W/ FOLIC ACID TABLET (FP) PO SCH (10:09)
--- NOTE | 2017-07-11 16:27 | PN ---
[facility] Progress Note (SOAP) Subjective: shakes sweats sleep disturbance Objective: 07/11/17 16:26 a & O X 3 nO DISTRESS NOTED Vital Signs Temperature 96.1 F L 07/11/17 13:56 Pulse Rate 63 07/11/17 13:56 Respiratory Rate 18 07/11/17 13:56 Blood Pressure 126/79 07/11/17 13:56 O2 Sat by Pulse Oximetry (%) Assessment: 07/11/17 16:26 WITHDRAWAL SX Plan: CONTINUE DETOX CANE FOR AMBULATION FOR D/C IN AM
[2017-07-11] MEDS: IBUPROFEN 400 MG TABLET (FP) PO PRN (18:00)
[2017-07-11] MEDS: THIAMINE HCL 100 MG TABLET (FP) PO SCH (21:50)
[2017-07-11] MEDS: ZOLPIDEM TARTRATE 10 MG TABLET (PARK CARE ONLY) PO PRN (21:50)
[2017-07-12] MEDS ORDERED: METHADONE HCL 5 MG TABLET (FOR DETOX USE ONLY) PO SCH (06:00)
[2017-07-12 06:16] VITALS: BP 127/84; PULSE 65; TEMP 97.8
[2017-07-12] MEDS: METHYL SALICYLATE/MENTHOL OINT 30 GM TUBE TP SCH (09:20)
[2017-07-12] MEDS: PRENATAL VITAMINS W/ FOLIC ACID TABLET (FP) PO SCH (09:20)
[2017-07-12] MEDS: MINERAL OIL/PETROLAT/WATER TOPICAL CREAM 113 GM JAR TP SCH (09:20)
--- NOTE | 2017-07-12 17:04 | PN ---
[facility] Progress Note (SOAP) Subjective: Patient denies current Detox symptoms and reports that he feels well overall. Objective: PATIENT A & O X 3, OBSERVED AMBULATING ON UNIT. NO ACUTE DISTRESS. 07/12/17 17:03 Vital Signs Temperature 97.8 F 07/12/17 06:15 Pulse Rate 65 07/12/17 06:15 Respiratory Rate 18 07/12/17 06:15 Blood Pressure 127/84 07/12/17 06:15 O2 Sat by Pulse Oximetry (%) Laboratory Tests 07/07/17 07/07/17 07/08/17 07:00 15:10 07:00 WBC 8.9 RBC 4.67 Hgb 13.7 Hct 40.0 MCV 85.7 MCH 29.4 MCHC 34.3 RDW 13.3 Plt Count 261 MPV 8.9 Sodium Potassium Chloride Carbon Dioxide Anion Gap BUN Creatinine Creat Clearance w eGFR Random Glucose Calcium Total Bilirubin AST ALT Alkaline Phosphatase Total Protein Albumin Urine Color Yellow Urine Appearance Clear Urine pH 5.0 Ur Specific [place] 1.021 Urine Protein Negative Urine Glucose (UA) Negative Urine Ketones Negative Urine Blood Negative Urine Nitrite Negative Urine Bilirubin Negative Urine Urobilinogen Negative Ur Leukocyte Esterase Negative RPR Titer HIV 1&2 Antibody Screen Negative HIV P24 Antigen Negative 07/08/17 07/08/17 07:00 07:00 WBC RBC Hgb Hct MCV MCH MCHC RDW Plt Count MPV Sodium 141 Potassium 4.3 Chloride 107 Carbon Dioxide 28 Anion Gap 6 L BUN 14 Creatinine 1.0 Creat Clearance w eGFR > 60 Random Glucose 71 L D Calcium 8.9 Total Bilirubin 0.6 D AST 16 ALT 18 D Alkaline Phosphatase 151 H Total Protein 6.0 L Albumin 3.2 L Urine Color Urine Appearance Urine pH Ur Specific [place] Urine Protein Urine Glucose (UA) Urine Ketones Urine Blood Urine Nitrite Urine Bilirubin Urine Urobilinogen Ur Leukocyte Esterase RPR Titer Nonreactive HIV 1&2 Antibody Screen HIV P24 Antigen LABS NOTED. Assessment: 07/12/17 17:03 COMPLETION OF DETOX REGIMEN. Plan: PATIENT SCHEDULED FOR DISCHARGE FROM DETOX UNIT TODAY.
--- NOTE | 2017-07-12 17:07 | DS ---
[facility] Detox Discharge Summary Admission Date: 07/07/17 Discharge Date: 07/12/17 - History Present History: Alcohol Dependence, Cocaine Dependence, Opioid Dependence Additional Comments: PATIENT WILL LIKELY GO TO [facility] ([place], [place] OUTPATIENT PROGRAM FOR AFTERCARE. PATIENT WAS DISCHARGED FORM DETOX UNIT IN STABLE MEDICAL CONDITION. Pertinent Past History: Nicotine Dependence, Arthritis of Knee, Insomnia Depression, Anxiety, history of Positive PPD. - Physical Exam Results Vital Signs: Vital Signs Temperature 97.8 F 07/12/17 06:15 Pulse Rate 65 07/12/17 06:15 Respiratory Rate 18 07/12/17 06:15 Blood Pressure 127/84 07/12/17 06:15 O2 Sat by Pulse Oximetry (%) Pertinent Admission Physical Exam Findings: WITHDRAWAL SYMPTOMS. Laboratory Tests 07/07/17 07/07/17 07/08/17 07:00 15:10 07:00 WBC 8.9 RBC 4.67 Hgb 13.7 Hct 40.0 MCV 85.7 MCH 29.4 MCHC 34.3 RDW 13.3 Plt Count 261 MPV 8.9 Sodium Potassium Chloride Carbon Dioxide Anion Gap BUN Creatinine Creat Clearance w eGFR Random Glucose Calcium Total Bilirubin AST ALT Alkaline Phosphatase Total Protein Albumin Urine Color Yellow Urine Appearance Clear Urine pH 5.0 Ur Specific [place] 1.021 Urine Protein Negative Urine Glucose (UA) Negative Urine Ketones Negative Urine Blood Negative Urine Nitrite Negative Urine Bilirubin Negative Urine Urobilinogen Negative Ur Leukocyte Esterase Negative RPR Titer HIV 1&2 Antibody Screen Negative HIV P24 Antigen Negative 07/08/17 07/08/17 07:00 07:00 WBC RBC Hgb Hct MCV MCH MCHC RDW Plt Count MPV Sodium 141 Potassium 4.3 Chloride 107 Carbon Dioxide 28 Anion Gap 6 L BUN 14 Creatinine 1.0 Creat Clearance w eGFR > 60 Random Glucose 71 L D Calcium 8.9 Total Bilirubin 0.6 D AST 16 ALT 18 D Alkaline Phosphatase 151 H Total Protein 6.0 L Albumin 3.2 L Urine Color Urine Appearance Urine pH Ur Specific [place] Urine Protein Urine Glucose (UA) Urine Ketones Urine Blood Urine Nitrite Urine Bilirubin Urine Urobilinogen Ur Leukocyte Esterase RPR Titer Nonreactive HIV 1&2 Antibody Screen HIV P24 Antigen LABS NOTED. - Treatment Hospital Course: Detox Protocol Followed, Detoxed Safely, Responded well, Discharged Condition Good Patient has Accepted a Rehab Referral to: PATIENT GOING TO [facility] ([place], [place] - Medication Discharge Medications: Ambulatory Orders NK [No Known Home Medication] 07/07/17 - Diagnosis (1) Alcohol dependence with uncomplicated withdrawal Status: Acute (2) Cocaine dependence Status: Chronic Qualifiers: Substance use status: uncomplicated Qualified Code(s): F14.20 - Cocaine dependence, uncomplicated (3) Insomnia secondary to depression with anxiety Status: Acute (4) Nicotine dependence Status: Chronic Qualifiers: Nicotine product type: cigarettes Substance use status: in withdrawal Qualified Code(s): F17.213 - Nicotine dependence, cigarettes, with withdrawal (5) Weight loss Status: Acute (6) Arthritis Status: Chronic (7) PPD positive, treated Status: Chronic (8) Opioid dependence with withdrawal Status: Acute (9) Insomnia Status: Acute Qualifiers: Insomnia type: unspecified Qualified Code(s): G47.00 - Insomnia, unspecified - AMA Did Patient Leave Against Medical Advice: No
== END 2017-07-12 09:05 | disposition home or self-care (01) | DRG 773 ==
LOC: YASAS 10:59 → Y3N 14:57
PROVIDERS: ADMIT Internal Medicine; ATTEND Internal Medicine
PROC: HZ2ZZZZ Detoxification Services for Substance Abuse Treatment (ICD-10-PCS; principal; 2017-07-07)
DX: F11.23 Opioid dependence with withdrawal (principal); F10.230 Alcohol dependence with withdrawal, uncomplicated; F14.20 Cocaine dependence, uncomplicated; F17.213 Nicotine dependence, cigarettes, with withdrawal; F19.24 Other psychoactive substance dependence with psychoactive substance-induced mood disorder; F19.282 Other psychoactive substance dependence with psychoactive substance-induced sleep disorder; F51.05 Insomnia due to other mental disorder; F41.8 Other specified anxiety disorders; M12.9 Arthropathy, unspecified; R63.4 Abnormal weight loss; Z68.23 Body mass index [BMI] 23.0-23.9, adult; R76.11 Nonspecific reaction to tuberculin skin test without active tuberculosis
CPT/HCPCS: 36415; 80053; 81003; 85027; 86593; 87389; 93005; 93010

== ENCOUNTER 2018-09-02 12:06 | Inpatient (IN) | payer OTHER ==
[2018-09-02 14:57] VITALS: BMI 22.2
--- NOTE | 2018-09-02 16:53 | HP ---
COWS - Scale Resting Pulse: 0= [place] 80 or Below Sweatin=Flushed/Facial Moisture Restless Observation: 1= Difficult to Sit Still Pupil Size: 0= Normal to Room Light Bone or Joint Aches: 1= Mild Discomfort Runny Nose/ Eye Tearin= Runny Nose/Eyes GI Upset > 30mins: 2= Nausea/Diarrhea Tremor Observation: 2= Slight Tremor Visible Yawning Observation: 1= 1-2x During Session Anxiety or Irritability: 1=Feels Anxious/Irritable Goose Flesh Skin: 3=Piloerection COWS Score: 15 CIWA Score Nausea/Vomitin Muscle Tremors: 2 Anxiety: 2 Agitation: 2 Paroxysmal Sweats: 2 Orientation: 0-Oriented Tacttile Disturbances: 2-Mild Itch/Numbness/Burn Auditory Disturbances: 0-None Visual Disturbances: 0-None Headache: 2-Mild CIWA-Ar Total Score: 14 - Admission Criteria [facility] Guidelines: Admission for Medically Managed Detox: Requires at least one of the followin. CIWA greater than 12 2. Seizures within the past 24 hours 3. Delirium tremens within the past 24 hours 4. Hallucinations within the past 24 hours 5. Acute intervention needed for co occurring medical disorder 6. Acute intervention needed for co occurring psychiatric disorder 7. Severe withdrawal that cannot be handled at a lower level of care (continued vomiting, continued diarrhea, abnormal vital signs) requiring intravenous medication and/or fluids 8. Patient presents the following: CIWA greater than 12 Admission Criteria Met: Admission criteria met Admission ROS [facility] - [facility] Chief Complaint: I am here to detox and get my life back together Allergies/Adverse Reactions: Allergies Allergy/AdvReac Type Severity Reaction Status Date / Time No Known Allergies Allergy Verified 09/02/18 14:49 History of Present Illness: 53 year old man presents for detox from alcohol and heroin. He reports his last detox was at [facility] about a month and half ago for 2 days. Longest period of sobriety was 7 years about 10 years ago. He denies alcohol related seizures or black outs. Exam Limitations: No Limitations - Ebola screening Have you traveled outside of the country in the last 21 days: No (N) Have you had contact with anyone from an Ebola affected area: No Have you been sick,other than usual withdrawal symptoms: No Do you have a fever: No - Review of Systems Constitutional: Chills, Loss of Appetite, Changes in sleep, Weakness, Unexplained wgt Loss EENT: reports: Recent change in vision, Nose Congestion Respiratory: reports: No Symptoms reported Cardiac: reports: No Symptoms Reported GI: reports: Poor Appetite, Abdominal cramping : reports: No Symptoms Reported Musculoskeletal: reports: Back Pain, Joint Pain, Muscle Pain, Muscle Weakness Integumentary: reports: No Symptoms Reported Neuro: reports: Headache, Numbness, Tremors Endocrine: reports: No Symptoms Reported Hematology: reports: No Symptoms Reported Psychiatric: reports: Depressed Other Systems: Reviewed and Negative Patient History - Patient Medical History Hx Anemia: Yes Hx Asthma: No Hx Chronic Obstructive Pulmonary Disease (COPD): No Hx Cancer: No Hx Cardiac Disorders: No Hx Congestive Heart Failure: No Hx Hypertension: No Hx Hypercholesterolemia: No Hx Pacemaker: No HX Cerebrovascular Accident: No Hx Seizures: No Hx Dementia: No Hx Diabetes: No Hx Gastrointestinal Disorders: No Hx Liver Disease: No Hx Genitourinary Disorders: No Hx Sexually Transmitted Disorders: No Hx Renal Disease (ESRD): No Hx Thyroid Disease: No Hx Human Immunodeficiency Virus (HIV): No Hx Hepatitis C: No (Never Tested.) Hx Depression: Yes Hx Suicide Attempt: No Hx Bipolar Disorder: No Hx Schizophrenia: No - Patient Surgical History Past Surgical History: Yes Hx Neurologic Surgery: No Hx Cataract Extraction: No Hx Cardiac Surgery: No Hx Lung Surgery: No Hx Breast Surgery: No Hx Breast Biopsy: No Hx Abdominal Surgery: No Hx Appendectomy: No Hx Cholecystectomy: No Hx Genitourinary Surgery: Yes (Kidney Stone Removed: 1998.cystosopy) Hx Section: No Hx Orthopedic Surgery: No Other Surgical History: Metal Plate Placed in Jaw after Fracture: 1982. laft Anesthesia Reaction: No - PPD History Previous Implant?: Yes Documented Results: Positive w/o proof Implanted On Prior [facility] Admission?: No PPD to be Administered?: No - Smoking Cessation Smoking history: Current every day smoker Have you smoked in the past 12 months: Yes Aproximately how many cigarettes per day: 10 Cigars Per Day: 0 Hx Chewing Tobacco Use: No Initiated information on smoking cessation: Yes 'Breaking Loose' booklet given: 09/02/18 - Substance & Tx. History Hx Alcohol Use: Yes Hx Substance Use: Yes Substance Use Type: Alcohol, Cocaine, Heroin Hx Substance Use Treatment: Yes - Substances abused Alcohol Other (specify): Alcohol Substance route: Oral Frequency: Daily Amount used: 2-3 6pks beer, 1/2pint Vodka Age of first use: 9 Date of last use: 09/01/18 Heroin Substance route: Inhalation Frequency: Daily Amount used: 10 bags/day Age of first use: 33 Date of last use: 09/01/18 Crack Substance route: Smoking Frequency: Daily Amount used: $120/day Age of first use: 20 Date of last use: 09/01/18 Family Disease History - Family Disease History Family Disease History: Heart Disease: Grandparent ([place].), Father (, 3 CVA's.), [place]: Grandparent Admission Physical Exam [facility] - Vital Signs Vital Signs: Vital Signs - 24 hr 09/02/18 14:50 Temperature 98.3 F Pulse Rate 66 Respiratory 18 Rate Blood Pressure 140/83 - Physical General Appearance: Yes: No Apparent Distress HEENTM: Yes: EOMI, Hearing grossly Normal, Normal ENT Inspection, Normocephalic , Normal Voice, JAMEL Respiratory: Yes: Chest Non-Tender, Lungs Clear, Normal Breath Sounds, No Respiratory Distress, No Accessory Muscle Use Neck: Yes: No masses,lesions,Nodules, Supple Breast: Yes: Breast Exam Deferred Cardiology: Yes: Regular Rhythm, Regular Rate, S1, S2 Abdominal: Yes: Normal Bowel Sounds, Non Tender, Soft Genitourinary: Yes: Within Normal Limits Back: Yes: Normal Inspection Musculoskeletal: Yes: full range of Motion Extremities: Yes: Normal Capillary Refill, Tremors Neurological: Yes: Within Normal Limits, installer inspector final II-XII NML intact, Fully Oriented, Alert, Normal Mood/Affect, Normal Response Integumentary: Yes: Cold, Clammy Lymphatic: Yes: Within Normal Limits - Diagnostic (1) Alcohol dependence with uncomplicated withdrawal Current Visit: Yes Status: Acute (2) Opioid dependence with withdrawal Current Visit: No Status: Acute (3) Nicotine dependence Current Visit: No Status: Acute Qualifiers: Nicotine product type: cigarettes Substance use status: uncomplicated Qualified Code(s): F17.210 - Nicotine dependence, cigarettes, uncomplicated Cleared for Admission [facility] - Detox or Rehab [facility] Level of Care: Medically Managed Detox Regimen/Protocol: Methadone/Librium Breathalyzer - Breathalyzer Breathalyzer: 0 Urine Drug Screen - Test Device Lot number: [id number] Expiration date: 06/20/20 - Control Is test valid?: Yes - Results Drug screen NEGATIVE: No Urine drug screen results: BRYN-Cocaine, MOP-Opiates Inpatient Rehab Admission - Rehab Decision to Admit Inpatient rehab admission?: No
[2018-09-02] MEDS ORDERED: NICOTINE POLACRILEX 2 MG GUM BUC PRN (17:00)
[2018-09-02] MEDS ORDERED: MAG HYDROX/AL HYDROX/SIMETH 30 ML UNIT-DOSE CUP PO PRN (17:00)
[2018-09-02] MEDS ORDERED: cloNIDine HCL 0.1 MG TABLET PO PRN (17:00)
[2018-09-02] MEDS ORDERED: MENTHOL/PHENOL 1 EACH UD MM PRN (17:00)
[2018-09-02] MEDS ORDERED: clonazePAM 0.5 MG TABLET PO PRN (17:00)
[2018-09-02] MEDS ORDERED: BISMUTH SUBSALICYLATE 524 MG/30 ML UD PO PRN (17:00)
[2018-09-02] MEDS ORDERED: MAGNESIUM CITRATE 300 ML BOTTLE PO PRN (17:00)
[2018-09-02] MEDS ORDERED: chlordiazePOXIDE HCL 25 MG CAPSULE PO ONE (17:00)
[2018-09-02] MEDS ORDERED: MAGNESIUM HYDROX 2400MG/30ML ORAL SUSPENSION 30 ML CUP PO PRN (17:00)
[2018-09-02] MEDS ORDERED: METHOCARBAMOL 500 MG TABLET PO PRN (17:00)
[2018-09-02] MEDS ORDERED: METHADONE HCL 10 MG TABLET (FOR DETOX USE ONLY) PO ONE (17:00)
[2018-09-02] MEDS ORDERED: ACETAMINOPHEN 325 MG TABLET (FP) PO PRN ×2 (17:00)
[2018-09-02] MEDS ORDERED: chlordiazePOXIDE HCL 10 MG CAPSULE PO PRN (17:00)
[2018-09-02] MEDS ORDERED: IBUPROFEN 400 MG TABLET (FP) PO PRN (17:00)
[2018-09-02] MEDS ORDERED: NALOXONE HCL 0.4 MG/ML VIAL IM PRN (17:00)
[2018-09-02] MEDS: NICOTINE 14 MG/24 HOURS TOPICAL PATCH TD SCH (18:20)
[2018-09-02] MEDS: chlordiazePOXIDE HCL 25 MG CAPSULE PO SCH (22:36)
[2018-09-02] MEDS: MELATONIN 5 MG TABLETS PO PRN (22:36)
[2018-09-02] MEDS: THIAMINE HCL 100 MG TABLET (FP) PO SCH (22:36)
[2018-09-03] MEDS: chlordiazePOXIDE HCL 25 MG CAPSULE PO SCH ×3 (05:19→22:29)
--- NOTE | 2018-09-03 08:53 | EKG ---
Test Reason : Blood Pressure : / mmHG Vent. Rate : 064 BPM Atrial Rate : 064 BPM P-R Int : 142 ms QRS Dur : 090 ms QT Int : 368 ms P-R-T Axes : 079 062 052 degrees QTc Int : 379 ms NORMAL SINUS RHYTHM MINIMAL VOLTAGE CRITERIA FOR LVH, MAY BE NORMAL VARIANT BORDERLINE ECG WHEN COMPARED WITH ECG OF 07-JUL-2017 17:02, NO SIGNIFICANT CHANGE WAS FOUND Confirmed by ANGELIC TERRY, REGGIE ([id number]) on 09/03/2018 8:53:31 AM Referred By: JEFFRY DAUGHERTY Confirmed By:REGGIE ATWOOD MD
[2018-09-03] MEDS ORDERED: METHADONE HCL 5 MG TABLET (FOR DETOX USE ONLY) PO ONE (10:00)
[2018-09-03] MEDS: NICOTINE 14 MG/24 HOURS TOPICAL PATCH TD SCH (10:38)
[2018-09-03] MEDS: PRENATAL VITAMINS W/ FOLIC ACID TABLET (FP) PO SCH (10:38)
[2018-09-03 12:02] LABS: HEMATOCRIT 40.6 % (35.4-49); HEMOGLOBIN 14.1 GM/dL (11.7-16.9); MCHC 34.7 g/dl (32.0-35.9); MEAN CELL VOLUME 83.6 fl (80-96); MEAN PLT VOLUME 7.3 fl (7.5-11.1); RBC 4.85 M/mm3 (4.00-5.60); RDW 13.2 % (11.9-15.9); WHITE BLOOD COUNT 9.9 K/mm3 (4.0-10.0)
[2018-09-03 12:12] LABS: PLATELET COUNT 302 K/MM3 (134-434)
[2018-09-03 12:48] LABS: ALBUMIN 3.5 g/dl (3.4-5.0); BILIRUBIN,TOTAL 0.2 mg/dL (0.2-1); BLOOD UREA NITROGEN 14.6 mg/dL (7-18); CALCIUM 9.7 mg/dL (8.5-10.1); POTASSIUM 4.2 mmol/L (3.5-5.1); TOT PROT 6.3 g/dl (6.4-8.2)
--- NOTE | 2018-09-03 16:31 | PN ---
S CIWA - CIWA Score Nausea/Vomitin-Mild Nausea/No Vomiting Muscle Tremors: 3 Anxiety: 3 Agitation: 3 Paroxysmal Sweats: 3 Orientation: 0-Oriented Tacttile Disturbances: 0-None Auditory Disturbances: 0-None Visual Disturbances: 0-None Headache: 0-None Present CIWA-Ar Total Score: 13 BHS COWS - Scale Resting Pulse: 0= [place] 80 or Below Sweatin= Chills/Flushing Restless Observation: 3= Extraneous Movement Pupil Size: 0= Normal to Room Light Bone or Joint Aches: 2= Severe Diffuse Aches Runny Nose/ Eye Tearin= Runny Nose/Eyes GI Upset > 30mins: 2= Nausea/Diarrhea Tremor Observation of Outstretched Hands: 2= Slight Tremor Visible Yawning Observation: 0= None Anxiety or Irritability: 1=Feels Anxious/Irritable Goose Flesh Skin: 0=Smooth Skin COWS Score: 13 S Progress Note (SOAP) Subjective: Anxious, body feels uncomfortable, interrupted sleep; patient requesting ensure. Objective: 09/03/18 16:29 Last Vital Signs Temp Pulse Resp BP Pulse Ox 98.4 F 64 18 143/86 09/03/18 14:10 09/03/18 14:10 09/03/18 14:10 09/03/18 14:10 Elevated blood pressure (denies HTN, on clonidine prn) Laboratory Tests 09/03/18 09/03/18 09/03/18 09:40 09:40 09:40 WBC 9.9 RBC 4.85 Hgb 14.1 Hct 40.6 MCV 83.6 MCH 29.0 MCHC 34.7 RDW 13.2 Plt Count 302 MPV 7.3 L D Sodium 140 Potassium 4.2 Chloride 108 H Carbon Dioxide 28 Anion Gap 4 L BUN 14.6 Creatinine 1.0 Est GFR (CKD-EPI)AfAm 97.77 Est GFR (CKD-EPI)NonAf 84.35 Random Glucose 86 Calcium 9.7 Total Bilirubin 0.2 AST 9 L ALT 19 Alkaline Phosphatase 145 H Total Protein 6.3 L Albumin 3.5 RPR Titer HIV 1&2 Antibody Screen Negative HIV P24 Antigen Negative 09/03/18 09:40 WBC RBC Hgb Hct MCV MCH MCHC RDW Plt Count MPV Sodium Potassium Chloride Carbon Dioxide Anion Gap BUN Creatinine Est GFR (CKD-EPI)AfAm Est GFR (CKD-EPI)NonAf Random Glucose Calcium Total Bilirubin AST ALT Alkaline Phosphatase Total Protein Albumin RPR Titer Nonreactive HIV 1&2 Antibody Screen HIV P24 Antigen Labs reviewed: alk phos 145 Assessment: 09/03/18 16:30 Withdrawal symptoms Elevated b/p and alk phos noted Plan: Continue detox Encouraged PO water intake Elevated b/p: denies htn; continue clonidine prn, monitor blood pressure Elevated alk phos: repeat alk phos level in AM
[2018-09-03] MEDS: THIAMINE HCL 100 MG TABLET (FP) PO SCH (22:29)
[2018-09-03] MEDS: MELATONIN 5 MG TABLETS PO PRN (22:29)
[2018-09-04] MEDS: chlordiazePOXIDE 5 MG CAPSULE PO SCH ×3 (05:17→22:26)
[2018-09-04] MEDS ORDERED: METHADONE HCL 10 MG TABLET (FOR DETOX USE ONLY) PO ONE (10:00)
[2018-09-04] MEDS: PRENATAL VITAMINS W/ FOLIC ACID TABLET (FP) PO SCH (10:29)
[2018-09-04] MEDS: FLUTICASONE PROP 0.05% 16 GM NASAL SPRAY NS SCH (10:29)
[2018-09-04] MEDS: NICOTINE 14 MG/24 HOURS TOPICAL PATCH TD SCH (10:30)
--- NOTE | 2018-09-04 12:04 | PN ---
[facility] CIWA - CIWA Score Nausea/Vomitin-No Nausea/No Vomiting Muscle Tremors: 3 Anxiety: 2 Agitation: 2 Paroxysmal Sweats: 2 Orientation: 0-Oriented Tacttile Disturbances: 0-None Auditory Disturbances: 0-None Visual Disturbances: 0-None Headache: 0-None Present CIWA-Ar Total Score: 9 BHS COWS - Scale Resting Pulse: 0= [place] 80 or Below Sweatin= Chills/Flushing Restless Observation: 1= Difficult to Sit Still Pupil Size: 0= Normal to Room Light Bone or Joint Aches: 1= Mild Discomfort Runny Nose/ Eye Tearin= Nasal Congestion GI Upset > 30mins: 0= None Tremor Observation of Outstretched Hands: 2= Slight Tremor Visible Yawning Observation: 1= 1-2x During Session Anxiety or Irritability: 1=Feels Anxious/Irritable Goose Flesh Skin: 0=Smooth Skin COWS Score: 8 BHS Progress Note (SOAP) Subjective: sinus infection nasal congestion sweats anxiety Objective: 09/04/18 12:03 Vital Signs Temperature 98.2 F 09/04/18 09:17 Pulse Rate 68 09/04/18 09:17 Respiratory Rate 16 09/04/18 09:17 Blood Pressure 124/72 09/04/18 09:17 O2 Sat by Pulse Oximetry (%) Laboratory Tests 09/03/18 09/03/18 09/03/18 09:40 09:40 09:40 WBC 9.9 RBC 4.85 Hgb 14.1 Hct 40.6 MCV 83.6 MCH 29.0 MCHC 34.7 RDW 13.2 Plt Count 302 MPV 7.3 L D Sodium 140 Potassium 4.2 Chloride 108 H Carbon Dioxide 28 Anion Gap 4 L BUN 14.6 Creatinine 1.0 Est GFR (CKD-EPI)AfAm 97.77 Est GFR (CKD-EPI)NonAf 84.35 Random Glucose 86 Calcium 9.7 Total Bilirubin 0.2 AST 9 L ALT 19 Alkaline Phosphatase 145 H Total Protein 6.3 L Albumin 3.5 RPR Titer HIV 1&2 Antibody Screen Negative HIV P24 Antigen Negative 09/03/18 09/04/18 09:40 07:00 WBC RBC Hgb Hct MCV MCH MCHC RDW Plt Count MPV Sodium Potassium Chloride Carbon Dioxide Anion Gap BUN Creatinine Est GFR (CKD-EPI)AfAm Est GFR (CKD-EPI)NonAf Random Glucose Calcium Total Bilirubin AST ALT Alkaline Phosphatase 129 H Total Protein Albumin RPR Titer Nonreactive HIV 1&2 Antibody Screen HIV P24 Antigen labs noted alkaline phosphatase showing improvement aaox3 ambulating no acute distress Assessment: 09/04/18 12:03 withdrawal sx sinus area tender to touch, some swelling noted Plan: continue detox increase fluids flonase n/s ordered amoxicillin abx ordered
[2018-09-04] MEDS: AMOXICILLIN 500 MG CAPSULE (FP) PO SCH ×2 (14:43→22:25)
[2018-09-04] MEDS: THIAMINE HCL 100 MG TABLET (FP) PO SCH (22:25)
[2018-09-05] MEDS ORDERED: chlordiazePOXIDE HCL 10 MG CAPSULE PO PRN
[2018-09-05] MEDS: AMOXICILLIN 500 MG CAPSULE (FP) PO SCH ×3 (05:58→22:49)
[2018-09-05] MEDS: chlordiazePOXIDE HCL 10 MG CAPSULE PO SCH ×3 (05:58→22:49)
[2018-09-05] MEDS ORDERED: METHADONE HCL 5 MG TABLET (FOR DETOX USE ONLY) PO ONE (06:00)
[2018-09-05] MEDS: NICOTINE 14 MG/24 HOURS TOPICAL PATCH TD SCH (10:19)
[2018-09-05] MEDS: FLUTICASONE PROP 0.05% 16 GM NASAL SPRAY NS SCH (10:19)
[2018-09-05] MEDS: PRENATAL VITAMINS W/ FOLIC ACID TABLET (FP) PO SCH (10:19)
--- NOTE | 2018-09-05 13:22 | PN ---
[facility] CIWA - CIWA Score Nausea/Vomitin-No Nausea/No Vomiting Muscle Tremors: 2 Anxiety: 1-Mildly Anxious Agitation: 1-Slight > Activity Paroxysmal Sweats: No Perspiration Orientation: 0-Oriented Tacttile Disturbances: 0-None Auditory Disturbances: 0-None Visual Disturbances: 0-None Headache: 0-None Present CIWA-Ar Total Score: 4 BHS COWS - Scale Resting Pulse: 0= [place] 80 or Below Sweatin= Chills/Flushing Restless Observation: 0= Sits Still Pupil Size: 0= Normal to Room Light Bone or Joint Aches: 1= Mild Discomfort Runny Nose/ Eye Tearin= Nasal Congestion GI Upset > 30mins: 0= None Tremor Observation of Outstretched Hands: 1= Tremor [place], Not Seen Yawning Observation: 0= None Anxiety or Irritability: 1=Feels Anxious/Irritable Goose Flesh Skin: 0=Smooth Skin COWS Score: 5 S Progress Note (SOAP) Subjective: feeling better little anxiety Objective: 09/05/18 13:21 Vital Signs Temperature 97.9 F 09/05/18 09:45 Pulse Rate 77 09/05/18 09:45 Respiratory Rate 18 09/05/18 09:45 Blood Pressure 151/78 09/05/18 09:45 O2 Sat by Pulse Oximetry (%) aaox3 ambulating no acute distress Assessment: 09/05/18 13:22 mild withdrawal sx Plan: continue detox increase fluids d/c in am
[2018-09-05] MEDS: THIAMINE HCL 100 MG TABLET (FP) PO SCH (22:49)
[2018-09-06] MEDS ORDERED: chlordiazePOXIDE HCL 10 MG CAPSULE PO ONE (05:00)
[2018-09-06] MEDS: AMOXICILLIN 500 MG CAPSULE (FP) PO SCH ×2 (06:53→14:40)
--- NOTE | 2018-09-06 09:48 | DS ---
[facility] Detox Discharge Summary Admission Date: 09/02/18 Discharge Date: 09/06/18 - History Present History: Cocaine Dependence, Opioid Dependence - Physical Exam Results Vital Signs: Vital Signs Temperature 97.7 F 09/06/18 07:38 Pulse Rate 64 09/06/18 07:38 Respiratory Rate 18 09/06/18 07:38 Blood Pressure 117/76 09/06/18 07:38 O2 Sat by Pulse Oximetry (%) Pertinent Admission Physical Exam Findings: pt arrived in withdrawals Laboratory Tests 09/03/18 09/03/18 09/03/18 09:40 09:40 09:40 WBC 9.9 RBC 4.85 Hgb 14.1 Hct 40.6 MCV 83.6 MCH 29.0 MCHC 34.7 RDW 13.2 Plt Count 302 MPV 7.3 L D Sodium 140 Potassium 4.2 Chloride 108 H Carbon Dioxide 28 Anion Gap 4 L BUN 14.6 Creatinine 1.0 Est GFR (CKD-EPI)AfAm 97.77 Est GFR (CKD-EPI)NonAf 84.35 Random Glucose 86 Calcium 9.7 Total Bilirubin 0.2 AST 9 L ALT 19 Alkaline Phosphatase 145 H Total Protein 6.3 L Albumin 3.5 RPR Titer HIV 1&2 Antibody Screen Negative HIV P24 Antigen Negative 09/03/18 09/04/18 09:40 07:00 WBC RBC Hgb Hct MCV MCH MCHC RDW Plt Count MPV Sodium Potassium Chloride Carbon Dioxide Anion Gap BUN Creatinine Est GFR (CKD-EPI)AfAm Est GFR (CKD-EPI)NonAf Random Glucose Calcium Total Bilirubin AST ALT Alkaline Phosphatase 129 H Total Protein Albumin RPR Titer Nonreactive HIV 1&2 Antibody Screen HIV P24 Antigen today pt is aaox3 no s/s of withdrawals noted - Treatment Hospital Course: Detox Protocol Followed, Detoxed Safely, Responded well, Discharged Condition Good, Rehab Referral Accepted Patient has Accepted a Rehab Referral to: referred to [facility] - Medication Discharge Medications: Ambulatory Orders NK [No Known Home Medication] 07/07/17 - Diagnosis (1) Alcohol dependence with uncomplicated withdrawal Current Visit: Yes Status: Chronic (2) Insomnia secondary to depression with anxiety Current Visit: No Status: Acute (3) Nicotine dependence Current Visit: Yes Status: Chronic Qualifiers: Nicotine product type: cigarettes Substance use status: uncomplicated Qualified Code(s): F17.210 - Nicotine dependence, cigarettes, uncomplicated (4) Opioid dependence with withdrawal Current Visit: Yes Status: Chronic (5) Cocaine dependence Current Visit: Yes Status: Chronic Qualifiers: Substance use status: uncomplicated Qualified Code(s): F14.20 - Cocaine dependence, uncomplicated (6) PPD positive, treated Current Visit: No Status: Chronic (7) Substance induced mood disorder Current Visit: No Status: Chronic (8) Substance or medication-induced sleep disorder Current Visit: No Status: Chronic - AMA Did Patient Leave Against Medical Advice: No (referred to [facility])
[2018-09-06] MEDS: PRENATAL VITAMINS W/ FOLIC ACID TABLET (FP) PO SCH (10:35)
[2018-09-06] MEDS: FLUTICASONE PROP 0.05% 16 GM NASAL SPRAY NS SCH (10:35)
[2018-09-06] MEDS: NICOTINE 14 MG/24 HOURS TOPICAL PATCH TD SCH (10:35)
[2018-09-06 14:15] VITALS: BP 141/77; PULSE 79; TEMP 98
== END 2018-09-06 14:50 | disposition other institution (70) | DRG 773 ==
LOC: YASAS 12:06 → Y6N 17:32
PROVIDERS: ADMIT Surgery; ATTEND Surgery
PROC: HZ2ZZZZ Detoxification Services for Substance Abuse Treatment (ICD-10-PCS; principal; 2018-09-02)
DX: F11.23 Opioid dependence with withdrawal (principal); F10.230 Alcohol dependence with withdrawal, uncomplicated; F14.20 Cocaine dependence, uncomplicated; F17.210 Nicotine dependence, cigarettes, uncomplicated; F19.24 Other psychoactive substance dependence with psychoactive substance-induced mood disorder; F19.282 Other psychoactive substance dependence with psychoactive substance-induced sleep disorder; F51.01 Primary insomnia; R03.0 Elevated blood-pressure reading, without diagnosis of hypertension; R76.11 Nonspecific reaction to tuberculin skin test without active tuberculosis; R74.8 Abnormal levels of other serum enzymes
CPT/HCPCS: 36415; 71046-TC-FY; 80053; 84075; 85027; 86593; 87389; 93005; 93010

== ENCOUNTER 2018-09-06 14:51 | Inpatient (IN) | payer OTHER ==
[2018-09-06] MEDS ORDERED: ACETAMINOPHEN 325 MG TABLET (FP) PO PRN (15:28)
[2018-09-06] MEDS ORDERED: hydrOXYzine PAMOATE 50 MG CAPSULE (FP) PO PRN (15:28)
[2018-09-06] MEDS ORDERED: LOPERAMIDE HCL 2 MG CAPSULE PO PRN (15:28)
[2018-09-06] MEDS ORDERED: guaiFENesin 200 MG/10 ML 10 ML UNIT-DOSE CUPS PO PRN (15:28)
[2018-09-06] MEDS ORDERED: MAG HYDROX/AL HYDROX/SIMETH 30 ML UNIT-DOSE CUP PO PRN (15:28)
[2018-09-06] MEDS ORDERED: IBUPROFEN 400 MG TABLET (FP) PO PRN (15:28)
[2018-09-06] MEDS ORDERED: NICOTINE POLACRILEX 4 MG GUM BUC PRN (15:28)
[2018-09-06] MEDS ORDERED: MAGNESIUM CITRATE 300 ML BOTTLE PO PRN (15:28)
[2018-09-06] MEDS ORDERED: MAGNESIUM HYDROX 2400MG/30ML ORAL SUSPENSION 30 ML CUP PO PRN (15:28)
[2018-09-06] MEDS ORDERED: P-EPHED 60MG/TRIPROLIDI 2.5MG TABLET PO PRN (15:28)
--- NOTE | 2018-09-06 15:28 | HP ---
[facility] Rehab Assess/Revision - Admission History Ad[facility]hab [facility] - Findings Detox History & Physical reviewed: Yes Concur with findings: Yes Inpatient Rehab Admission - Rehab Decision to Admit Inpatient rehab admission?: Yes - Initial Determination Are CD services needed?: Yes Free of communicable disease: Yes Not in need of hospitalization: Yes - Rehab Admission Criteria Previous failed treatment: Yes Poor recovery environment: Yes Comorbidities: Yes Lacks judgement: Yes Patient is meeting Inpatient Rehab admission criteria:: Yes
[2018-09-06] MEDS: MELATONIN 5 MG TABLETS PO PRN (21:26)
[2018-09-06] MEDS: AMOXICILLIN 500 MG CAPSULE (FP) PO SCH (21:26)
[2018-09-06] MEDS: THIAMINE HCL 100 MG TABLET (FP) PO SCH (21:26)
[2018-09-07] MEDS ORDERED: PT OWN MED DRAWER 7, Y5N ONE (08:43)
--- NOTE | 2018-09-07 10:04 | PN ---
BHS COWS - Scale Resting Pulse: 0= [place] 80 or Below Sweatin=Flushed/Facial Moisture Restless Observation: 1= Difficult to Sit Still Pupil Size: 0= Normal to Room Light Bone or Joint Aches: 1= Mild Discomfort Runny Nose/ Eye Tearin= Runny Nose/Eyes GI Upset > 30mins: 2= Nausea/Diarrhea Tremor Observation of Outstretched Hands: 1= Tremor [place], Not Seen Yawning Observation: 1= 1-2x During Session Anxiety or Irritability: 2=Irritable/Anxious Goose Flesh Skin: 0=Smooth Skin COWS Score: 12 BHS Progress Note (SOAP) Subjective: patient wishes to start suboxone. Used suboxone for 6 months, and found that it helped. He relapsed on crack cocaine, then ETOH, and heroin and stopped taking suboxone in April. Now wishes to start again. Objective: General: appropriate HEENTM: PERRLA, some missing teeth Heart: S1 s2 audible Lungs: clear Abd; soft, + BS MSK: limited ROM neck, full weight bearing, steady gait Neuro: No neurological deficits noted, CN 2-12 intact. I-STOP REPORT: 01/06/2018 01/06/2018 suboxone 8 mg-2 mg sl film 56 28 Jose Mayer MD 12/02/2017 12/02/2017 suboxone 8 mg-2 mg sl film 56 28 Jose Mayer MD 11/04/2017 11/04/2017 suboxone 8 mg-2 mg sl film 60 30 Jose Mayer MD 09/30/2017 09/30/2017 suboxone 8 mg-2 mg sl film 60 30 Jose Mayer MD 09/16/2017 09/16/2017 suboxone 8 mg-2 mg sl film 28 14 Jose Mayer MD 09/07/18 10:19 Assessment: Opioid Dependence requiring mMAT 09/07/18 10:21 Plan: Suboxone MAT will start after confirmation that he will have a admission to a program to continue MAT. UTOX will be done. Patient instructed to see counselor for aftercare program.
[2018-09-07] MEDS: NICOTINE 21 MG/24 HOURS TOPICAL PATCH TD SCH (10:54)
[2018-09-07] MEDS: FLUTICASONE PROP 0.05% 16 GM NASAL SPRAY NS SCH (10:54)
[2018-09-07] MEDS: PRENATAL VITAMINS W/ FOLIC ACID TABLET (FP) PO SCH (10:55)
[2018-09-07] MEDS: AMOXICILLIN 500 MG CAPSULE (FP) PO SCH ×2 (10:55→21:30)
[2018-09-07] MEDS: METHOCARBAMOL 500 MG TABLET PO SCH ×2 (10:56→21:30)
[2018-09-07] MEDS: MENTHOL/PHENOL 1 EACH UD MM PRN ×2 (10:59→21:32)
[2018-09-07] MEDS: MELATONIN 5 MG TABLETS PO PRN (21:30)
[2018-09-07] MEDS: THIAMINE HCL 100 MG TABLET (FP) PO SCH (21:30)
[2018-09-08] MEDS: PRENATAL VITAMINS W/ FOLIC ACID TABLET (FP) PO SCH (10:00)
[2018-09-08] MEDS: NICOTINE 21 MG/24 HOURS TOPICAL PATCH TD SCH (10:00)
[2018-09-08] MEDS: AMOXICILLIN 500 MG CAPSULE (FP) PO SCH ×2 (10:00→21:31)
[2018-09-08] MEDS: METHOCARBAMOL 500 MG TABLET PO SCH ×2 (10:00→21:31)
[2018-09-08] MEDS: FLUTICASONE PROP 0.05% 16 GM NASAL SPRAY NS SCH (10:00)
[2018-09-08] MEDS: THIAMINE HCL 100 MG TABLET (FP) PO SCH (21:31)
[2018-09-08] MEDS: MELATONIN 5 MG TABLETS PO PRN (21:32)
[2018-09-09] MEDS: AMOXICILLIN 500 MG CAPSULE (FP) PO SCH ×2 (09:45→21:35)
[2018-09-09] MEDS: NICOTINE 21 MG/24 HOURS TOPICAL PATCH TD SCH (09:46)
[2018-09-09] MEDS: PRENATAL VITAMINS W/ FOLIC ACID TABLET (FP) PO SCH (09:46)
[2018-09-09] MEDS: METHOCARBAMOL 500 MG TABLET PO SCH ×2 (09:46→21:35)
[2018-09-09] MEDS: FLUTICASONE PROP 0.05% 16 GM NASAL SPRAY NS SCH (09:46)
[2018-09-09] MEDS: MELATONIN 5 MG TABLETS PO PRN (21:35)
[2018-09-09] MEDS: THIAMINE HCL 100 MG TABLET (FP) PO SCH (21:35)
[2018-09-09] MEDS: IBUPROFEN 600 MG TABLET (FP) PO PRN (21:35)
[2018-09-10] MEDS: PRENATAL VITAMINS W/ FOLIC ACID TABLET (FP) PO SCH (10:18)
[2018-09-10] MEDS: METHOCARBAMOL 500 MG TABLET PO SCH ×2 (10:18→22:21)
[2018-09-10] MEDS: AMOXICILLIN 500 MG CAPSULE (FP) PO SCH (10:18)
[2018-09-10] MEDS: IBUPROFEN 600 MG TABLET (FP) PO PRN ×2 (10:19→21:49)
[2018-09-10] MEDS: NICOTINE 21 MG/24 HOURS TOPICAL PATCH TD SCH (10:21)
[2018-09-10] MEDS: FLUTICASONE PROP 0.05% 16 GM NASAL SPRAY NS SCH (10:21)
[2018-09-10] MEDS: THIAMINE HCL 100 MG TABLET (FP) PO SCH (21:48)
[2018-09-10] MEDS: MELATONIN 5 MG TABLETS PO PRN (21:48)
[2018-09-11] MEDS: PRENATAL VITAMINS W/ FOLIC ACID TABLET (FP) PO SCH (10:18)
[2018-09-11] MEDS: FLUTICASONE PROP 0.05% 16 GM NASAL SPRAY NS SCH (10:19)
[2018-09-11] MEDS: METHOCARBAMOL 500 MG TABLET PO SCH ×2 (10:19→21:15)
[2018-09-11] MEDS: NICOTINE 21 MG/24 HOURS TOPICAL PATCH TD SCH (10:19)
[2018-09-11] MEDS: IBUPROFEN 600 MG TABLET (FP) PO PRN (21:14)
[2018-09-11] MEDS: THIAMINE HCL 100 MG TABLET (FP) PO SCH (21:14)
[2018-09-11] MEDS: MELATONIN 5 MG TABLETS PO PRN (21:14)
[2018-09-12] MEDS: PRENATAL VITAMINS W/ FOLIC ACID TABLET (FP) PO SCH (10:13)
[2018-09-12] MEDS: NICOTINE 21 MG/24 HOURS TOPICAL PATCH TD SCH (10:14)
[2018-09-12] MEDS: FLUTICASONE PROP 0.05% 16 GM NASAL SPRAY NS SCH (10:14)
[2018-09-12] MEDS: METHOCARBAMOL 500 MG TABLET PO SCH ×2 (10:14→21:41)
--- NOTE | 2018-09-12 11:16 | PN ---
BHS COWS - Scale Resting Pulse: 0= [place] 80 or Below Sweatin= No chills or Flushing Restless Observation: 0= Sits Still Pupil Size: 0= Normal to Room Light Bone or Joint Aches: 1= Mild Discomfort Runny Nose/ Eye Tearin= Runny Nose/Eyes GI Upset > 30mins: 1= Stomach Cramp Tremor Observation of Outstretched Hands: 1= Tremor [place], Not Seen Yawning Observation: 0= None Anxiety or Irritability: 2=Irritable/Anxious Goose Flesh Skin: 0=Smooth Skin COWS Score: 7 BHS Progress Note (SOAP) Subjective: patient will start suboxone today at 4mg/day and will titrate up as needed. When he was treated with suboxone before, his daily dose was 16mg. His previous healthcare provider, Dr. Conde, has agreed to continue his treatment after discharge. This was confirmed by his counselor. Objective: Physical General: COWS score 7; client expresses anxiety. Skin: clear, color consistent throughout trunk and extremities Lungs: clear, respirations easy and unlabored. Heart: s1 S2 audible, regular Abd; soft , +BS MSK: full weight bearing, gait steady, full ROM. 09/12/18 11:13 I-STOP was reviewed at last meeting, please refer to previous note. 09/12/18 11:15 URINE DRUG SCREEN RESULTS Drug Screen Negative No Urine Drug Screen Results BZO-Benzodiazepines Vital Signs (72 hours) 09/10/18 09/10/18 09/10/18 00:30 03:30 06:52 Temperature 97.5 F L Pulse Rate 64 Respiratory 20 18 18 Rate Blood Pressure 123/75 09/11/18 09/11/18 09/11/18 00:30 03:30 06:57 Temperature 97.6 F Pulse Rate 64 Respiratory 18 18 18 Rate Blood Pressure 135/70 09/12/18 09/12/18 09/12/18 00:30 03:30 07:10 Temperature 97.3 F L Pulse Rate 60 Respiratory 18 18 18 Rate Blood Pressure 131/76 09/12/18 11:17 Assessment: Opioid dependence with Suboxone MAT. 09/12/18 11:16 Plan: Will titrate to effective level as agreed upon with patient, who will continue aftercare with Dr. Conde.
[2018-09-12] MEDS: BUPRENORPHINE/NALOXONE 4 MG/1 MG FILM PACKET SL SCH (11:47)
[2018-09-12] MEDS: THIAMINE HCL 100 MG TABLET (FP) PO SCH (21:40)
[2018-09-12] MEDS ORDERED: QUEtiapine FUMARATE 50 MG TABLET PO SCH (22:00)
[2018-09-13] MEDS: BUPRENORPHINE/NALOXONE 4 MG/1 MG FILM PACKET SL SCH (06:28)
[2018-09-13 06:35] VITALS: BP 141/70; PULSE 61; TEMP 97.5
--- NOTE | 2018-09-13 09:42 | PN ---
S Progress Note (SOAP) Subjective: patient to be discharged today for personal reasons. Hospital Course: Patient was in rehab from 09/06 until today. During his time here he attended all assigned groups, had individual meetings with his counselor, was adherent to his treatment plan and his medication regimen. Objective: Vital Signs (72 hours) 09/11/18 09/11/18 09/11/18 00:30 03:30 06:57 Temperature 97.6 F Pulse Rate 64 Respiratory 18 18 18 Rate Blood Pressure 135/70 09/12/18 09/12/18 09/12/18 00:30 03:30 07:10 Temperature 97.3 F L Pulse Rate 60 Respiratory 18 18 18 Rate Blood Pressure 131/76 09/13/18 09/13/18 03:30 06:35 Temperature 97.5 F L Pulse Rate 61 Respiratory 18 18 Rate Blood Pressure 141/70 URINE DRUG SCREEN RESULTS Drug Screen Negative No Urine Drug Screen Results BZO-Benzodiazepines 09/13/18 09:50 09/13/18 09:52 Physical General Appearance: No Apparent Distress; able to make needs known, follow instructions HEENTM: Hearing grossly Normal, Normocephalic, PERRLA Respiratory: Lungs Clear, Normal Breath Sounds, No Respiratory Distress, No Accessory Muscle Use Neck: Supple; thyroid aligned Cardiology: Regular Rhythm, Regular Rate, S1, S2 Abdominal: +Bowel Sounds, Non Tender, Soft Back: spine aligned; non-tender Musculoskeletal: full range of Motion;steady gait, full weight bearing Extremities: Brisk Capillary Refill Neurological: counter installer II-XII intact, Fully Oriented, Alert Integumentary: dry, clear, color consistent throughout trunk and extremities Lymphatic: lymph nodes non-palpable Assessment: Medically stable Discharge Dx: Cocaine dependence Opioid Dependence ETOH dependence PPD+ 09/13/18 09:56 Plan: Continuation of care: Patient will be attending 12 step meetings and working towards entering a residential treatment program-either [facility] or [facility]. He receives medical care bya PCP at [address] [place] [address]. He will also continue suboxone treatment there. His previous provider has agreed to continue treatment.
[2018-09-13] MEDS: PRENATAL VITAMINS W/ FOLIC ACID TABLET (FP) PO SCH (10:01)
[2018-09-13] MEDS: METHOCARBAMOL 500 MG TABLET PO SCH (10:02)
[2018-09-13] MEDS: FLUTICASONE PROP 0.05% 16 GM NASAL SPRAY NS SCH (10:02)
[2018-09-13] MEDS: NICOTINE 21 MG/24 HOURS TOPICAL PATCH TD SCH (10:02)
== END 2018-09-13 10:15 | disposition left against medical advice (07) | DRG 770 ==
LOC: YASAS 14:51 → Y3W 14:52
PROVIDERS: ADMIT Neuromusculoskeletal Medicine & OMM; ATTEND Neuromusculoskeletal Medicine & OMM
PROC: HZ42ZZZ Group Counseling for Substance Abuse Treatment, Cognitive-Behavioral (ICD-10-PCS; principal; 2018-09-06)
DX: F11.20 Opioid dependence, uncomplicated (principal); F10.20 Alcohol dependence, uncomplicated; F14.20 Cocaine dependence, uncomplicated

== ENCOUNTER 2022-05-23 13:15 | Inpatient (IN) | payer OTHER ==
[2022-05-23 16:27] VITALS: BMI 21.5
[2022-05-23] MEDS ORDERED: POLYETHYLENE GLYCOL (HEALTHYLAX) 3350 17 GM PACKET PO PRN (16:49)
[2022-05-23] MEDS ORDERED: ACETAMINOPHEN 325 MG TABLET (FP) PO PRN (16:49)
[2022-05-23] MEDS ORDERED: IBUPROFEN 400 MG TABLET (FP) PO PRN (16:49)
[2022-05-23] MEDS ORDERED: NICOTINE 10 MG CARTRIDGE (INHALER) IH PRN (16:49)
[2022-05-23] MEDS ORDERED: BENZOCAINE/MENTHOL (CHLORASEPTIC ) LOZENGE MM PRN (16:49)
[2022-05-23] MEDS ORDERED: BISMUTH SUBSALICYLATE 524 MG/30 ML PO PRN (16:49)
[2022-05-23] MEDS ORDERED: guaiFENesin 600 MG TABLET.ER (FP) PO PRN (16:49)
[2022-05-23] MEDS ORDERED: DICYCLOMINE HCL 10 MG CAPSULE PO PRN (16:49)
[2022-05-23] MEDS ORDERED: NALOXONE HCL (KLOXXADO) 8 MG SPRAY NS PRN (16:49)
[2022-05-23] MEDS ORDERED: LOPERAMIDE HCL 2 MG CAPSULE PO PRN (16:49)
[2022-05-23] MEDS ORDERED: NALOXONE HCL 0.4 MG/ML VIAL IM PRN (16:49)
[2022-05-23] MEDS ORDERED: methaDONE HCL 10 MG TABLET (FOR DETOX USE ONLY) PO ONE (16:49)
[2022-05-23] MEDS ORDERED: MAG HYDROX/AL HYDROX/SIMETH 30 ML UNIT-DOSE CUP PO PRN (16:49)
[2022-05-23] MEDS ORDERED: IBUPROFEN 600 MG TABLET (FP) PO PRN (16:49)
[2022-05-23] MEDS ORDERED: MAGNESIUM HYDROX 2400MG/30ML ORAL SUSPENSION 30 ML CUP PO PRN (16:49)
[2022-05-23] MEDS ORDERED: BENZONATATE 200 MG CAPSULE PO PRN (16:49)
[2022-05-23] MEDS ORDERED: methaDONE HCL 10 MG TABLET (FOR DETOX USE ONLY) ONE (18:17)
[2022-05-23] MEDS: METHOCARBAMOL 500 MG TABLET PO PRN (18:35)
[2022-05-23] MEDS: cloNIDine HCL 0.1 MG TABLET PO PRN ×2 (18:35→22:31)
[2022-05-23] MEDS ORDERED: MELATONIN 5 MG TABLETS PO SCH (22:00)
[2022-05-23] MEDS ORDERED: THIAMINE HCL 100 MG TABLET (FP) PO SCH (22:00)
[2022-05-24 09:25] VITALS: RESP 18
[2022-05-24] MEDS ORDERED: PRENATAL VITAMINS W/ FOLIC ACID TABLET (FP) PO SCH (10:00)
[2022-05-24] MEDS: METHOCARBAMOL 500 MG TABLET PO PRN (10:13)
[2022-05-24 11:21] LABS: ALBUMIN 3.5 g/dl (3.4-5.0); BLOOD UREA NITROGEN 15.5 mg/dL (7-18); CALCIUM 10.6 mg/dL (8.5-10.1)
[2022-05-24 11:26] LABS: BILIRUBIN,TOTAL 0.2 mg/dL (0.2-1); HEMATOCRIT 43.2 % (35.4-49); HEMOGLOBIN 14.8 GM/dL (11.7-16.9); MCH 27.6 pg (25.7-33.7); MCHC 34.3 g/dl (32.0-35.9); MEAN CELL VOLUME 80.5 fl (80-96); PLATELET COUNT 304 10^3/uL (134-434); RBC 5.36 M/mm3 (4.00-5.60); RDW 13.7 % (11.9-15.9); TOT PROT 6.6 g/dl (6.4-8.2); WHITE BLOOD COUNT 7.6 K/mm3 (4.0-10.0)
[2022-05-24 12:43] VITALS: TEMP 98.2
[2022-05-24 17:07] VITALS: BP 131/85; PULSE 65
[2022-05-24] MEDS ORDERED: traZODone HCL 50 MG TABLET (FP) PO SCH (22:00)
[2022-05-25] MEDS ORDERED: methaDONE HCL 10 MG TABLET (FOR DETOX USE ONLY) PO ONE (10:00)
[2022-05-25] MEDS ORDERED: SERTRALINE HCL 50 MG TABLET (FP) PO SCH (10:00)
[2022-05-27] MEDS ORDERED: methaDONE HCL 10 MG TABLET (FOR DETOX USE ONLY) PO ONE (10:00)
== END 2022-05-24 17:30 | disposition left against medical advice (07) | DRG 770 ==
LOC: YASAS 13:15 → Y3N 18:12
PROVIDERS: ADMIT Allergy & Immunology; ATTEND Surgery
PROC: HZ2ZZZZ Detoxification Services for Substance Abuse Treatment (ICD-10-PCS; principal; 2022-05-23)
DX: F11.23 Opioid dependence with withdrawal (principal); F14.20 Cocaine dependence, uncomplicated; F17.210 Nicotine dependence, cigarettes, uncomplicated; F19.24 Other psychoactive substance dependence with psychoactive substance-induced mood disorder; F41.9 Anxiety disorder, unspecified; G47.00 Insomnia, unspecified; J45.20 Mild intermittent asthma, uncomplicated; M54.41 Lumbago with sciatica, right side; G89.29 Other chronic pain; R76.11 Nonspecific reaction to tuberculin skin test without active tuberculosis; Z56.0 Unemployment, unspecified; Z59.00 Homelessness unspecified
CPT/HCPCS: 36415; 71046-TC-FY; 80053; 85027; 86593; 86780; 87811; 93005; 93010; C9803-CS; U0003; U0005